=== PATIENT | female | born 1940 | race Caucasian/White ===

== ENCOUNTER 2018-06-02 13:21 | Inpatient (IN) ==
[2018-06-02] MEDS ORDERED: Acetaminophen 325 MG TABLET PO PRN (19:03)
[2018-06-02] MEDS: *HR* Heparin 5,000 UNIT/ML VIAL SQ SCH (19:10)
[2018-06-02] MEDS ORDERED: Mag Hydrox/Al Hydrox/Simeth 30 ML UDC PO PRN (19:44)
[2018-06-02] MEDS: Gabapentin 300 MG CAPSULE PO SCH (22:45)
[2018-06-02] MEDS: Acetaminophen 325 MG TABLET PO PRN (22:45)
[2018-06-02] MEDS: Carbidopa/Levodopa ER 50/200 TABLET PO SCH (22:46)
[2018-06-03] MEDS: Ondansetron ODT 4 MG TAB.RAPDIS SL PRN ×3 (06:15→19:51)
[2018-06-03] MEDS: *HR* Heparin 5,000 UNIT/ML VIAL SQ SCH ×2 (06:16→18:46)
[2018-06-03 06:21] LABS: Basophils % 0.3 %; Eosinophils # 0.1 K/mcL (0.0-0.6); Eosinophils % 1.5 %; Hematocrit 29.9 % (35.3-44.9); Immature Granulocytes % 0.4 % (0-4); Lymphocytes # 2.1 K/mcL (0.6-4.6); Lymphocytes % 31.3 %; Mean Corpuscular HGB Conc 33.4 g/dL (31.6-35.5); Mean Corpuscular Hemoglobin 29.6 pg (28.0-33.3); Mean Corpuscular Volume 88.5 fL (83.0-100.0); Mean Platelet Volume 11.4 fL (9.4-12.4); Monocytes # 0.5 K/mcL (0.0-1.3); Monocytes % 7.7 %; Platelet Count 127 K/mcL (140-400); Red Blood Count 3.38 M/mcL (3.82-4.97); Red Cell Distribution Width 15.4 % (11.5-14.5); Segmented Neutrophils % 58.8 %
[2018-06-03] MEDS: Acetaminophen 325 MG TABLET PO PRN ×2 (10:06→14:04)
[2018-06-03] MEDS: Carbidopa/Levodopa ER 50/200 TABLET PO SCH ×2 (10:08→20:47)
[2018-06-03] MEDS: Gabapentin 300 MG CAPSULE PO SCH ×2 (10:09→20:46)
[2018-06-03] MEDS: Aspirin 81 MG TAB.CHEW PO SCH (10:09)
[2018-06-03] MEDS: amLODIPine 5 MG TABLET PO SCH (10:09)
--- NOTE | 2018-06-03 15:58 | Internal Med History&Physical ---
Date of Encounter: 06/03/18 Time of Encounter: 15:52 Assessment and Plan (1) Intractable nausea and vomiting Current visit: No Status: Acute We will increase her Zofran dose and follow. I encouraged patient to prioritize fluids and try soft foods as tolerated. Qualifiers: Vomiting type: unspecified Qualified Code(s): R11.2 - Nausea with vomiting, unspecified (2) Left leg weakness Current visit: No Status: Acute Etiology is uncertain but we will follow clinically and assess with therapy, otherwise as needed. (3) Dysarthria Current visit: No Status: Acute Long-standing, per history, will follow and try to accommodate patient. (4) S/P laparoscopic cholecystectomy Current visit: No Status: Acute She has minimal abdominal tenderness and seems to be quite stable and improving well clinically with exception of her nausea and vomiting. (5) Hypokalemia Current visit: No Status: Acute Chemistry was obtained. This is been requested. (6) DVT prophylaxis Current visit: No Status: Acute She is being treated with prophylactic heparin. (7) UTI (urinary tract infection) Current visit: No Status: Resolved No current signs or symptoms. Qualifiers: Urinary tract infection type: site unspecified Hematuria presence: with hematuria Qualified Code(s): N39.0 - Urinary tract infection, site not s pecified; R31.9 - Hematuria, unspecified (8) Elevated bilirubin Current visit: No Status: Acute I suspect this is related to her cholestatic jaundice but will reassess with a comprehensive metabolic panel. This is especially true given her intractable nausea and vomiting. (9) Constipation Current visit: Yes Status: Acute As above, I instructed patient to use MiraLAX if no bowel movement in the next 12-24 hours. Qualifiers: Constipation type: slow transit constipation Qualified Code(s): K59.01 - S low transit constipation (10) Parkinsons disease Current visit: Yes Status: Acute Severity is difficult to assess but she has some changes including dizziness which could be related. She also has diminished facial expression which could be related to her strokes or to this diagnosis. We will continue her carbidopa/levodopa. (11) Depression Current visit: Yes Status: Acute We will follow and continue current regimen. Qualifiers: Depression Type: major depressive disorder Major depression recurrence: unspecified whether recurrent Major depression episode severity: unspecified Qualified Code(s): F32.9 - Major depressive disorder, single episode, unspecified Internal Medicine - H&P: HPI Admitted From: Hospital to Hospital Transfer Plans for Post Hospital Care: Home History of present illness: Ms. Kline is a 78 year old female with a history of stroke 3 which causes dysarthria, hyperlipidemia, hypertension, depression who had long-standing n ausea with emesis. This was especially bad for about a month before her admission for intractable nausea and vomiting. She was found to have cholecystitis and cholelithiasis. She underwent thoracoscopic cholecystectomy and has improved. However, she still has nausea with some inability to keep m edications and other foods down. She denies hematemesis or hematochezia. She was noted to have diminished strength in her left leg and for this reason has had 2 MRIs with no change from previous, reported by patient and family. The patient notes blurred vision which has been present prior to her hospitalization and surgery. On confrontation, she states that she has diplopia with extraocular muscles. She states is been present for about 2-3 weeks, or more. She is not sure when she had her eyes checked or glasses change most recently. She complains of sores on the roof of her mouth which have not allowed her to wear her dentures for at least more than 2 weeks prior to surgery. She has left knee pain which has been present since the time of her surgery. She knows of no injury or fall, related. For unknown reasons, she has had neck pain and inability to move her neck for quite some time. This is limiting her ability to hyperextend her neck. She has not had a bowel movement since surgery. Past Med Surg Social Fam HX - Past Medical History Source: patient, obtained from family Medical history: coronary artery disease, CVA, hyperlipidemia, hypertension Additional medical history: Parkinson's Disease Psychiatric history: depression - Past Surgical History Surgical History: no surgical history, cholecystectomy Additional surgical history: Laparoscopic - Social History Smoking Status: Never smoker Smokeless Tobacco Status: No Alcohol use: none Drug use: none Occupational status: unemployed - Family History Mother Hx Family Cardiac Disorders: Yes Father Hx Family Cardiac Disorders: Yes Internal Medicine - H&P: Meds Amlodipine Besylate 10 mg PO DAILY 05/18/17 [History] Aspirin 05/18/17 [History] Atorvastatin [Lipitor] 40 mg PO DAILY 01/24/18 [History] Buspirone HCl [Buspar] 5 mg PO BID 05/18/17 [History] Carbidopa/Levodopa ER 50/200 [Sinemet ER 50-200 Tab] 1 tab PO BID 05/18/17 [History] Prevacid 05/18/17 [History] Sertraline [Zoloft] 150 mg PO DAILY 05/18/17 [History] Bethanechol [Urecholine] 25 mg PO BID 05/30/18 [History] Gabapentin [Neurontin] 300 mg PO BID 05/30/18 [History] Bisacodyl [Dulcolax] 5 mg PO DAILY PRN tablet 06/02/18 [Rx] Docusate [Colace] 100 mg PO BID capsule 06/02/18 [Rx] Heparin 5,000 unit SQ Q12HCO vial 06/02/18 [Rx] Sucralfate [Carafate] 1 gm PO QIDAC udc 06/02/18 [Rx] Allergy/AdvReac Type Severity Reaction Status Date / Time Sulfa (Sulfonamide Allergy Hives Verified 05/28/18 13:39 Antibiotics) All Systems PM: Patient is edentulous and wears full dentures. Eye changes as above. Patient has no complaint of chest discomfort, dyspnea, orthopnea, breathing problems, palpitations, nausea or vomiting, constipation or diarrhea, other changes in bowel habits, heartburn, difficulty with urination, kidney problems or kidney stones, fevers chills or sweats, rash or itching, seizures, headache or lightheadedness, heat or cold intolerance, blood problems or anemia, or other new complaints, except as mentioned above. Review of systems is otherwise negative. - Constitutional Vitals: Temp Pulse Resp BP Pulse Ox 98.2 F 82 16 111/77 97 06/03/18 14:49 06/03/18 14:49 06/03/18 14:49 06/03/18 14:49 06/03/18 14:49 Exam: Examination: (Except as mentioned above): General: In no apparent distress, alert and oriented 3. However, exam and history are limited because of the patient's dysarthria. Fortunately, the patient's granddaughter in law is present and is able to elucidate about 95% of what the patient is saying. Later, her son and grandson also are present. Head: Atraumatic and normocephalic. Eyes: Extraocular muscles are intact, pupils equal round and reactive to light and accommodation. Sclerae anicteric. Ears: External ears are normal to inspection and hearing is grossly normal. Nose: Patent without lesion noted. Mouth: No intraoral lesions seen. She is edentulous. No lesions are seen at her anterior palate on the right side where she says she has sores in her mouth. Exam is somewhat limited by the angle she is able to perform because of her neck disability. Neck: Supple with trachea midline. There is no thyromegaly or adenopathy and carotids are 2+ without bruit heard. Respiratory: No use of accessory muscles. Lungs are clear throughout. Normal airflow. Cardiovascular: Regular rate and rhythm without murmur appreciated. Abdomen: Bowel sounds are normal. No hepatosplenomegaly or mass but has diffuse mild abdominal tenderness, without guarding or rebound. Obese and therefore difficult to palpate deeply. Patient is examined upright in chair and this also limits exam. Extremities: No cyanosis clubbing or edema. No crepitus with range of motion at knees or signs of effusion, etc. Neurological: A and O 3. Cranial nerves II through XII are intact. No focal deficits and no abnormal movements or postures. Skin: Warm and non-diaphoretic with no lesions noted. Breasts, pelvic and rectal: Not examined. Internal Med - H&P Results - Labs CBC & Chem 7: 06/03/18 05:50 Labs: Short CBC 06/03/18 Range/Units 05:50 WBC 6.8 (4.3-11.1) K/mcL Hgb 10.0 L (11.5-15.4) g/dL Hct 29.9 L (35.3-44.9) % Plt Count 127 L (140-400) K/mcL Neutrophils # 4.0 (1.6-8.9) K/mcL
[2018-06-04 04:55] LABS: Basophils % 0.5 %; Eosinophils # 0.1 K/mcL (0.0-0.6); Eosinophils % 2.3 %; Hematocrit 30.9 % (35.3-44.9); Hemoglobin 10.1 g/dL (11.5-15.4); Immature Granulocytes % 0.8 % (0-4); Lymphocytes # 2.2 K/mcL (0.6-4.6); Lymphocytes % 35.5 %; Mean Corpuscular HGB Conc 32.7 g/dL (31.6-35.5); Mean Corpuscular Hemoglobin 28.7 pg (28.0-33.3); Mean Corpuscular Volume 87.8 fL (83.0-100.0); Mean Platelet Volume 11.5 fL (9.4-12.4); Monocytes # 0.6 K/mcL (0.0-1.3); Monocytes % 8.9 %; Neutrophils # 3.2 K/mcL (1.6-8.9); Platelet Count 160 K/mcL (140-400); Red Blood Count 3.52 M/mcL (3.82-4.97); Red Cell Distribution Width 15.2 % (11.5-14.5)
[2018-06-04 05:09] LABS: Alanine Aminotransferase 4 Units/L (7-52); Albumin 2.9 g/dL (3.5-5.7); Albumin/Globulin Ratio 1.3 (1.1-2.2); Alkaline Phosphatase 129 Units/L (34-104); Aspartate Amino Transferase 25 Units/L (13-39); BUN/Creatinine Ratio 30 (6-26); Bilirubin,Total 0.8 mg/dL (0.3-1.0); Blood Urea Nitrogen 18 mg/dL (8-23); Calcium 9.2 mg/dL (8.6-10.3); Carbon Dioxide 35 mEq/L (23-29); Chloride 98 mEq/L (98-107); Globulin 2.2 g/dL (2.4-3.5); Glucose 87 mg/dL (70-105); Magnesium 1.5 mg/dL (1.6-2.6); Osmolality,Calculated 287 (280-300); Potassium 3.5 mEq/L (3.5-5.1); Sodium 138 mEq/L (136-145); Total Protein 5.1 g/dL (6.4-8.9); eGFR For Non-African Americans > 60 (> 60)
[2018-06-04] MEDS: *HR* Heparin 5,000 UNIT/ML VIAL SQ SCH ×2 (05:29→17:08)
[2018-06-04] MEDS: Ondansetron ODT 4 MG TAB.RAPDIS SL PRN ×2 (07:58→19:26)
[2018-06-04] MEDS: Gabapentin 300 MG CAPSULE PO SCH ×2 (09:07→20:37)
[2018-06-04] MEDS: amLODIPine 5 MG TABLET PO SCH (09:08)
[2018-06-04] MEDS: Carbidopa/Levodopa ER 50/200 TABLET PO SCH ×2 (09:08→20:37)
[2018-06-04] MEDS: Aspirin 81 MG TAB.CHEW PO SCH (09:08)
--- NOTE | 2018-06-04 15:27 | Internal Med Progress Note ---
Date of Encounter: 06/05/18 Time of Encounter: 15:24 - Assessment and plan (1) Intractable nausea and vomiting Current Visit: Yes Status: Acute Assessment and plan: This is improving although she still has some nausea. Will follow. Qualifiers: Vomiting type: unspecified Qualified Code(s): R11.2 - Nausea with vomiting, unspecified (2) Left leg weakness Current Visit: No Status: Acute Assessment and plan: The etiology is uncertain and might be left over from her stroke or new deficit. Will follow. (3) Dysarthria Current Visit: Yes Status: Acute Assessment and plan: This is apparently at baseline, per family. (4) S/P laparoscopic cholecystectomy Current Visit: Yes Status: Acute Assessment and plan: Improving but nausea is a remaining concern. Will follow. (5) Hypokalemia Current Visit: No Status: Acute Assessment and plan: Will follow serial labs. (6) DVT prophylaxis Current Visit: No Status: Acute Assessment and plan: Stable on current regimen of heparin subcutaneous. (7) UTI (urinary tract infection) Current Visit: No Status: Resolved Assessment and plan: No current signs or symptoms. Qualifiers: Urinary tract infection type: site unspecified Hematuria presence: with hematuria Qualified Code(s): N39.0 - Urinary tract infection, site not specified; R31.9 - Hematuria, unspecified (8) Elevated bilirubin Current Visit: No Status: Acute Assessment and plan: Repeat lab is scheduled for tomorrow. (9) Constipation Current Visit: Yes Status: Acute Assessment and plan: We will continue with MiraLAX, as planned. Qualifiers: Constipation type: slow transit constipation Qualified Code(s): K59.01 - Slow transit constipation (10) Parkinsons disease Current Visit: Yes Status: Acute Assessment and plan: Clinically stable. (11) Depression Current Visit: Yes Status: Acute Assessment and plan: Clinically stable. Qualifiers: Depression Type: major depressive disorder Major depression recurrence: un specified whether recurrent Major depression episode severity: unspecified Qualified Code(s): F32.9 - Major depressive disorder, single episode, u nspecified (12) Atelectasis Current Visit: Yes Status: Acute Assessment and plan: This is much improved versus exam yesterday. - Subjective Interval history: Her speech still limits communication but generally, she is understandable. Family is not present so communication is somewhat limited. Patient has less nausea than yesterday and has had no emesis. However, she still is choking on pills and has difficulty with nausea, almost all time. Her mild abdominal pain persists. Patient has no complaint of chest discomfort, dyspnea, orthopnea, palpitations, nausea or vomiting, constipation or diarrhea, other changes in bowel habits, difficulty with urination, rash or itching, or other new complaints, except as mentioned above. Review of systems is otherwise negative. I discussed management of her care with nursing staff. - Constitutional Vitals: Temp Pulse Resp BP Pulse Ox 98.2 F 72 16 104/68 98 06/04/18 07:44 06/04/18 07:44 06/04/18 07:44 06/04/18 07:44 06/04/18 07:44 Exam: Examination: (Except as mentioned above): General: In no apparent distress. Alert and oriented 3. Nondiaphoretic. Communication limited as above. Head: Atraumatic and normocephalic. Respiratory: No use of accessory muscles. Lungs are clear throughout except for left basilar rales which partially clear with coughing. Normal airflow. Cardiovascular: Regular rate and rhythm without murmur appreciated. Abdomen: Bowel sounds are normal. No hepatosplenomegaly mass or change in tenderness appreciated. She has mild lower abdominal wall tenderness without guarding or rebound. Obese and therefore difficult to palpate deeply. Extremities: No cyanosis clubbing or edema. Skin: Warm and non-diaphoretic with no new lesions noted. Internal Medicine: Result - Labs CBC & Chem 7: 06/05/18 05:10 06/05/18 05:10 Labs: Short CBC 06/04/18 Range/Units 04:32 WBC 6.2 (4.3-11.1) K/mcL Hgb 10.1 L (11.5-15.4) g/dL Hct 30.9 L (35.3-44.9) % Plt Count 160 (140-400) K/mcL Neutrophils # 3.2 (1.6-8.9) K/mcL BMP 06/04/18 04:32 Sodium 138 Potassium 3.5 Chloride 98 Carbon Dioxide 35 H BUN 18 Creatinine 0.60 Glucose 87 Calcium 9.2 Liver Function 06/04/18 Range/Units 04:32 Total Bilirubin 0.8 (0.3-1.0) mg/dL AST 25 (13-39) Units/L ALT 4 L (7-52) Units/L Alkaline Phosphatase 129 H (34-104) Units/L Albumin 2.9 L (3.5-5.7) g/dL Consult Discharge Plan - Plan Referrals: Jose Francisco Trotter DO [Primary Care Provider] -
[2018-06-04 20:44] LABS: Bilirubin,Urine Small (Negative); Blood,Urine Small (Negative); Clarity,Urine Slightly Cloudy (Clear); Glucose,Urine (UA) 100 mg/dL (Normal); Ketones,Urine Negative (Negative); Leukocyte Esterase,Urine Small (Negative); Nitrite,Urine Negative (Negative); Protein,Urine Trace mg/dL (Neg-Trace); Urobilinogen,Urine Normal (Normal)
[2018-06-04 20:51] LABS: Color,Urine Dark Yellow (Yellow)
[2018-06-04 20:53] LABS: Bacteria,Urine Few per hpf (None-Few); Hyaline Casts,Urine Few per lpf (None-Few)
[2018-06-05] MEDS: *HR* Heparin 5,000 UNIT/ML VIAL SQ SCH ×2 (04:42→17:23)
[2018-06-05 05:51] LABS: Basophils % 0.6 %; Eosinophils # 0.1 K/mcL (0.0-0.6); Eosinophils % 1.5 %; Hematocrit 29.5 % (35.3-44.9); Hemoglobin 9.7 g/dL (11.5-15.4); Lymphocytes # 2.8 K/mcL (0.6-4.6); Lymphocytes % 37.8 %; Mean Corpuscular HGB Conc 32.9 g/dL (31.6-35.5); Mean Corpuscular Volume 88.3 fL (83.0-100.0); Mean Platelet Volume 11.7 fL (9.4-12.4); Monocytes # 0.7 K/mcL (0.0-1.3); Neutrophils # 3.6 K/mcL (1.6-8.9); Platelet Count 156 K/mcL (140-400); Red Blood Count 3.34 M/mcL (3.82-4.97); Red Cell Distribution Width 14.9 % (11.5-14.5); Segmented Neutrophils % 49.1 %
[2018-06-05 06:06] LABS: Alanine Aminotransferase 6 Units/L (7-52); Albumin 2.9 g/dL (3.5-5.7); Albumin/Globulin Ratio 1.3 (1.1-2.2); Alkaline Phosphatase 124 Units/L (34-104); Aspartate Amino Transferase 23 Units/L (13-39); BUN/Creatinine Ratio 25 (6-26); Bilirubin,Total 0.8 mg/dL (0.3-1.0); Blood Urea Nitrogen 18 mg/dL (8-23); Calcium 9.4 mg/dL (8.6-10.3); Carbon Dioxide 36 mEq/L (23-29); Chloride 99 mEq/L (98-107); Globulin 2.2 g/dL (2.4-3.5); Glucose 86 mg/dL (70-105); Osmolality,Calculated 287 (280-300); Potassium 3.5 mEq/L (3.5-5.1); Sodium 138 mEq/L (136-145); Total Protein 5.1 g/dL (6.4-8.9); eGFR For Non-African Americans > 60 (> 60)
[2018-06-05] MEDS: Ondansetron ODT 4 MG TAB.RAPDIS SL PRN ×2 (08:27→17:30)
[2018-06-05] MEDS: Fluconazole 100 MG TABLET PO SCH (10:25)
[2018-06-05] MEDS: Aspirin 81 MG TAB.CHEW PO SCH (10:25)
[2018-06-05] MEDS: Acetaminophen 325 MG TABLET PO PRN (10:25)
[2018-06-05] MEDS: Carbidopa/Levodopa ER 50/200 TABLET PO SCH ×3 (10:26→22:19)
[2018-06-05] MEDS: Gabapentin 300 MG CAPSULE PO SCH ×3 (10:27→22:18)
[2018-06-05] MEDS: amLODIPine 5 MG TABLET PO SCH (10:27)
--- NOTE | 2018-06-05 11:33 | Internal Med Progress Note ---
Addendum entered and electronically signed by George David MD 06/05/18 12:50: I have personally performed a face to face evaluation on this patient. I have r eviewed and agree with the care plan. History and Exam by me shows: Patient continues to improve. She has mild nausea but much better than yesterday. She was able take her medicines without problems, this morning. She has no new complaints. She still has not had a bowel movement and I encouraged use of MiraLAX and if no bowel movement by this evening, a dose of magnesium citrate. We need to correct the constipation to see if that will help her bladder dysfunction. Nursing had noticed before urination last night and she was found to have a significantly enlarged bladder retention by bladder scan, last night. We started her on a regimen of catheterization but will go ahead and set she has no sensation of needing to urinate, will place a catheter with bladder training. Discussed care with other providers and/or nursing. Patient has no complaint of chest discomfort, dyspnea, orthopnea, palpitations, nausea or vomiting, constipation or diarrhea, other changes in bowel habits, difficulty with urination, rash or itching, or other new complaints, except as mentioned above. Review of systems is otherwise negative. Examination: (Except as mentioned above): General: In no apparent distress. Alert and oriented 3. Nondiaphoretic. Head: Atraumatic and normocephalic. Respiratory: No use of accessory muscles. Lungs are clear throughout. No rales are heard. Normal airflow. Cardiovascular: Regular rate and rhythm without murmur appreciated. Abdomen: Bowel sounds are normal. No hepatosplenomegaly mass or tenderness appreciated. Obese and therefore difficult to palpate deeply. Patient is examined upright in chair and this also limits exam. Extremities: No cyanosis clubbing or edema. Skin: Warm and non-diaphoretic with no new lesions noted. Original Note: Date of Encounter: 06/05/18 Time of Encounter: 11:31 - Assessment and plan (1) Intractable nausea and vomiting Current Visit: Yes Status: Acute Assessment and plan: Improving. No vomiting recently. Continue Zofran as needed for nausea. Qualifiers: Vomiting type: unspecified Qualified Code(s): R11.2 - Nausea with vomiting, unspecified (2) Dysarthria Current Visit: Yes Status: Acute Assessment and plan: This is been present since history of CVA. (3) S/P laparoscopic cholecystectomy Current Visit: Yes Status: Acute Assessment and plan: Incision improving. Abdominal pain improving. Follow up with surgeon as scheduled. (4) Parkinsons disease Current Visit: Yes Status: Acute Assessment and plan: Continue medication. Monitor neurological status. Assist with ADLs as necessary. Continue supportive care. - Time Spent With Patient less than 15 minutes - Subjective Interval history: Patient currently sitting up in wheelchair, denies pain. Starting to wean oxygen. Down to 1 L per nasal cannula maintaining sets greater than 96%. States she has not had a last bowel movement since prior to surgery. Taking Colace and Dulcolax. Will add Miralax today. States nausea and abdominal pain has improved. Patient is difficult to communicate with due to dysarthria from history of CVA times 3. Denies any further complaints at this time. - Constitutional Vitals: Temp Pulse Resp BP Pulse Ox 98.8 F 69 16 117/73 97 06/05/18 07:14 06/05/18 07:14 06/05/18 07:14 06/05/18 07:14 06/05/18 07:14 General appearance: Present: cooperative, A&O X 3, pleasant, no acute distress, answers questions appropriately Exam: Dysarthria - Head Head exam: Present: atraumatic, normocephalic - Eye Eye exam: Present: PERRL, conjuntiva pink, sclera anicteric Pupils: Present: PERRL - Neck Neck exam general surgery: Present: supple, trachea midline. Absent: lymphadenopathy - Respiratory Respiratory exam: Present: CTAB. Absent: accessory muscle use, rales, rhonchi, wheezes - Cardiovascular Cardiovascular exam: Present: RRR, +S1, +S2. Absent: diastolic murmur, gallop, rubs, systolic murmur - GI/Abdominal GI/Abdominal exam: Present: normal bowel sounds, soft, no peritoneal signs. Absent: distended, tenderness - Extremities Exam Extremities exam: Present: warm, radial pulses palpable and symmetrical. Absent: calf tenderness, cyanotic, pedal edema - Incison Comments: Laparoscopy incisions to abdomen Steri-Strips in place. No drainage. Bruising to lower abdomen present - Neurological Exam Neurological exam: Present: CN II-XII intact, oriented X3, no focal deficits. Absent: pronater drift, facial droop, speech deficit - Skin Skin exam: Present: dry, intact Internal Medicine: Result - Labs CBC & Chem 7: 06/05/18 05:10 06/05/18 05:10 Labs: Short CBC 06/05/18 Range/Units 05:10 WBC 7.3 (4.3-11.1) K/mcL Hgb 9.7 L (11.5-15.4) g/dL Hct 29.5 L (35.3-44.9) % Plt Count 156 (140-400) K/mcL Neutrophils # 3.6 (1.6-8.9) K/mcL BMP 06/05/18 05:10 Sodium 138 Potassium 3.5 Chloride 99 Carbon Dioxide 36 H BUN 18 Creatinine 0.72 Glucose 86 Calcium 9.4 Liver Function 06/05/18 Range/Units 05:10 Total Bilirubin 0.8 (0.3-1.0) mg/dL AST 23 (13-39) Units/L ALT 6 L (7-52) Units/L Alkaline Phosphatase 124 H (34-104) Units/L Albumin 2.9 L (3.5-5.7) g/dL Urine 06/04/18 Range/Units 20:30 Urine Color Dark Yellow (Yellow) Urine Clarity Slightly Cloudy A (Clear) Urine pH 7.0 (5.0-8.0) pH Units Ur Specific [place] 1.020 (1.010-1.025) Urine Protein Trace (Neg-Trace) mg/dL Urine Glucose (UA) 100 H (Normal) mg/dL Consult Discharge Plan - Plan Referrals: Jose Francisco Trotter DO [Primary Care Provider] -
[2018-06-06] MEDS: *HR* Heparin 5,000 UNIT/ML VIAL SQ SCH ×2 (06:17→15:46)
[2018-06-06] MEDS: Ondansetron ODT 4 MG TAB.RAPDIS SL PRN ×2 (07:32→19:47)
--- NOTE | 2018-06-06 11:22 | Internal Med Progress Note ---
Addendum entered and electronically signed by George David MD 06/06/18 13:29: I have personally performed a face to face evaluation on this patient. I have r eviewed and agree with the care plan. History and Exam by me shows: The patient is totally unable to swallow her medications, today. Applesauce did not work and so they tried ice cream that had been previously successful. This was not possible. She has minimal abdominal wall complaints but no nausea except when trying to swallow. Her oral intake is minimal including liquids. Nursing notes per family that this is her baseline. She had problems with this before. She remotely had a PEG tube. The patient notes that she is having difficulty swallowing her pills but in general, feels otherwise stable. Her left leg weakness has seemed to resolve. She still has had no bowel movement and because of urinary retention, we inserted a Bertrand catheter and will begin bladder training. Discussed care with other providers and/or nursing. Patient has no complaint of chest discomfort, dyspnea, orthopnea, palpitations, nausea or vomiting, constipation or diarrhea, other changes in bowel habits, difficulty with urination, rash or itching, or other new complaints, except as mentioned above. Review of systems is otherwise negative. Examination: (Except as mentioned above): General: In no apparent distress. Alert and oriented 3. Nondiaphoretic. Speech again limits evaluation. Head: Atraumatic and normocephalic. Respiratory: No use of accessory muscles. Lungs are clear throughout. Normal airflow. Cardiovascular: Regular rate and rhythm without murmur appreciated. Abdomen: Bowel sounds are normal. No hepatosplenomegaly mass or tenderness appreciated. Obese and therefore difficult to palpate deeply. Extremities: No cyanosis clubbing or change in edema. She still has 1+ edema bilaterally. Skin: Warm and non-diaphoretic with no new lesions noted. Nursing notes that her urine is tea colored and very dark. We will send a urinalysis for same. I encourage nursing to try her cardiac meds first. If she is not successful in getting these down in a day or so, we will need to talk with family about PEG tube placement. Because her oral intake is so limited, we will need to follow today and if she does not begin to eat or drink more soon, we will need to consider IV. Original Note: Date of Encounter: 06/06/18 Time of Encounter: 11:19 - Assessment and plan (1) Intractable nausea and vomiting Current Visit: Yes Status: Acute Assessment and plan: Having a gag reflex when taking pills, No vomiting recently. Continue Zofran as needed for nausea. Qualifiers: Vomiting type: unspecified Qualified Code(s): R11.2 - Nausea with vomiting, unspecified (2) Dysarthria Current Visit: Yes Status: Acute Assessment and plan: This is been present since history of CVA. (3) S/P laparoscopic cholecystectomy Current Visit: Yes Status: Acute Assessment and plan: Incision improving. Abdominal pain improving. Follow up with surgeon as scheduled. (4) Parkinsons disease Current Visit: Yes Status: Acute Assessment and plan: Continue medication. Monitor neurological status. Assist with ADLs as necessary. Continue supportive care. (5) Urinary retention Current Visit: Yes Status: Chronic Assessment and plan: Bertrand placed. Urine culture pending. This has been a chronic issue. - Time Spent With Patient less than 15 minutes - Subjective Interval history: Patient currently sitting up in wheelchair, denies pain. States she has not had a last bowel movement since prior to surgery. Taking Colace and Dulcolax, and Miralax. States nausea and abdominal pain has improved, but having gag reflux when taking pills. Unable to get medications down this morning. Patient is difficult to communicate with due to dysarthria from history of CVA times 3. Denies any further complaints at this time. - Constitutional Vitals: Temp Pulse Resp BP Pulse Ox 98.0 F 73 14 110/69 92 06/06/18 09:14 06/06/18 09:14 06/06/18 09:14 06/06/18 09:14 06/06/18 09:14 General appearance: Present: cooperative, A&O X 3, pleasant, no acute distress, answers questions appropriately - Head Head exam: Present: atraumatic, normocephalic - Eye Eye exam: Present: PERRL, conjuntiva pink, sclera anicteric Pupils: Present: PERRL - Neck Neck exam general surgery: Present: supple, trachea midline. Absent: lymphadenopathy - Respiratory Respiratory exam: Present: CTAB. Absent: accessory muscle use, rales, rhonchi, wheezes - Cardiovascular Cardiovascular exam: Present: RRR, +S1, +S2. Absent: diastolic murmur, gallop, rubs, systolic murmur - GI/Abdominal GI/Abdominal exam: Present: normal bowel sounds, soft, no peritoneal signs. Absent: distended, tenderness - Extremities Exam Extremities exam: Present: warm, radial pulses palpable and symmetrical. Absent: calf tenderness, cyanotic, pedal edema - Neurological Exam Neurological exam: Present: CN II-XII intact, oriented X3, no focal deficits. Absent: pronater drift, facial droop, speech deficit - Skin Skin exam: Present: dry, intact Internal Medicine: Result - Labs CBC & Chem 7: 06/05/18 05:10 06/05/18 05:10 Consult Discharge Plan - Plan Referrals: Jose Francisco Trotter DO [Primary Care Provider] -
[2018-06-06] MEDS: Aspirin 81 MG TAB.CHEW PO SCH (12:36)
[2018-06-06] MEDS: Fluconazole 100 MG TABLET PO SCH (12:37)
[2018-06-06] MEDS: Gabapentin 300 MG CAPSULE PO SCH ×3 (12:37→21:10)
[2018-06-06] MEDS: Carbidopa/Levodopa ER 50/200 TABLET PO SCH ×2 (12:37→21:08)
[2018-06-06] MEDS: amLODIPine 5 MG TABLET PO SCH ×2 (12:37→15:46)
[2018-06-06] MEDS ORDERED: Bisacodyl 10 MG RECTAL SUPPOSITORY RC PRN (13:54)
[2018-06-06] MEDS: Acetaminophen 325 MG TABLET PO PRN (15:46)
[2018-06-06] MEDS: 0.9 % Sodium Chloride 1,000 ML IVC SCH (19:35)
[2018-06-07] MEDS: 0.9 % Sodium Chloride 1,000 ML IVC SCH ×3 (03:28→20:20)
[2018-06-07] MEDS: *HR* Heparin 5,000 UNIT/ML VIAL SQ SCH ×2 (06:24→17:01)
[2018-06-07] MEDS: Ondansetron ODT 4 MG TAB.RAPDIS SL PRN ×2 (09:19→20:20)
[2018-06-07] MEDS: amLODIPine 5 MG TABLET PO SCH (10:04)
[2018-06-07] MEDS: Carbidopa/Levodopa ER 50/200 TABLET PO SCH ×2 (10:04→21:35)
[2018-06-07] MEDS: Gabapentin 300 MG CAPSULE PO SCH ×2 (10:04→21:35)
[2018-06-07] MEDS: Aspirin 81 MG TAB.CHEW PO SCH (10:05)
[2018-06-07] MEDS: Fluconazole 100 MG TABLET PO SCH (10:05)
[2018-06-07] MEDS: Acetaminophen 325 MG TABLET PO PRN (10:08)
--- NOTE | 2018-06-07 11:16 | Internal Med Progress Note ---
Addendum entered and electronically signed by George David MD 06/07/18 11:48: I have personally performed a face to face evaluation on this patient. I have r eviewed and agree with the care plan. History and Exam by me shows: Patient complains of pain at her coccyx. However, she states that she is feeling much better than yesterday. She is taking her medications. This is significantly better than yesterday. However, her oral intake is still only abo ut 60 mL's, this morning. We started him on IV because of her very poor oral intake, yesterday. She is hypoalbuminemic and not able to take medications intermittently and certainly is having problems with constipation. She still has had minimal bowel movement with Dulcolax suppository. If she does not go today, she will need to have a minimum. Nursing is aware that we need to speak with family about possible PEG tube placement because of poor poor intake. Nursing has dressed and reports a stage II decubitus ulcer at the coccygeal area. Discussed care with other providers and/or nursing. Patient has no complaint of chest discomfort, dyspnea, orthopnea, palpitations, nausea or vomiting, constipation or diarrhea, other changes in bowel habits, difficulty with urination, rash or itching, or other new complaints, except as mentioned above. Review of systems is otherwise negative. Examination: (Except as mentioned above): General: In no apparent distress. Alert and oriented 3. Nondiaphoretic. She is more understandable than yesterday. Her slurred speech makes in review difficult but she seems to be understanding everything. Head: Atraumatic and normocephalic. Respiratory: No use of accessory muscles. Lungs are clear throughout. Normal airflow. Cardiovascular: Regular rate and rhythm without murmur appreciated. Abdomen: Bowel sounds are normal. No hepatosplenomegaly mass or much tenderness appreciated. Obese and therefore difficult to palpate deeply. Extremities: No cyanosis clubbing or edema. Skin: Warm and non-diaphoretic with no new lesions noted. She has a large ecchymosis at the left hip but no fluctuance, etc. Original Note: Date of Encounter: 06/07/18 Time of Encounter: 11:11 - Assessment and plan (1) S/P laparoscopic cholecystectomy Current Visit: Yes Status: Acute Assessment and plan: No acute issues. Surgical incision appears healthy. Patient denies any discomforts. Patient participating in physical therapy. (2) Parkinsons disease Current Visit: Yes Status: Acute Assessment and plan: Patient continues with moderate generalized weakness. Physical therapy and progressing well. (3) Malnutrition Current Visit: Yes Status: Acute Assessment and plan: Patient continues with poor oral intake. Patient with history of mild malnutrition. Patient is being evaluated for possible pain placement. Recent albumin 2.9. Qualifiers: Protein-calorie malnutrition severity: mild Qualified Code(s): E44.1 - Mild protein-calorie malnutrition - Time Spent With Patient less than 15 minutes - Subjective Interval history: Patient appears relaxed but currently complaints of moderate pain to her sacral decubitus site. Patient denies any shortness of breath. - Constitutional Vitals: Temp Pulse Resp BP Pulse Ox 98.3 F 69 15 100/62 92 06/07/18 07:35 06/07/18 07:35 06/07/18 07:35 06/07/18 07:35 06/07/18 07:35 General appearance: Present: cooperative, A&O X 3, pleasant, no acute distress, answers questions appropriately - Head Head exam: Present: atraumatic, normocephalic - Eye Eye exam: Present: PERRL, conjuntiva pink, sclera anicteric Pupils: Present: PERRL - Neck Neck exam general surgery: Present: supple, trachea midline. Absent: lymphadenopathy - Respiratory Respiratory exam: Present: CTAB, rales. Absent: accessory muscle use, rhonchi, wheezes Additional comments: Lungs are clear throughout upper schwarz with scattered fine rales heard throughout lower half. Respiratory effort appears relaxed. No productive cough noted. - Cardiovascular Cardiovascular exam: Present: RRR, +S1, +S2. Absent: diastolic murmur, gallop, rubs, systolic murmur - GI/Abdominal GI/Abdominal exam: Present: normal bowel sounds, soft, no peritoneal signs. Absent: distended, tenderness - Extremities Exam Extremities exam: Present: warm, radial pulses palpable and symmetrical. Absent: calf tenderness, cyanotic, pedal edema - Neurological Exam Neurological exam: Present: CN II-XII intact, oriented X3, no focal deficits. Absent: pronater drift, facial droop, speech deficit - Skin Skin exam: Present: dry, intact Additional comments: Patient with small decubitus to her sacral area with dressing in place that is dry and intact. Internal Medicine: Result - Labs CBC & Chem 7: 06/05/18 05:10 06/05/18 05:10 Consult Discharge Plan - Plan Referrals: Jose Francisco Trotter DO [Primary Care Provider] -
[2018-06-08] MEDS: 0.9 % Sodium Chloride 1,000 ML IVC SCH ×3 (05:18→21:56)
[2018-06-08] MEDS: *HR* Heparin 5,000 UNIT/ML VIAL SQ SCH ×2 (05:19→17:39)
[2018-06-08] MEDS: Ondansetron ODT 4 MG TAB.RAPDIS SL PRN (07:55)
[2018-06-08] MEDS: Gabapentin 300 MG CAPSULE PO SCH ×2 (10:09→20:16)
[2018-06-08] MEDS: amLODIPine 5 MG TABLET PO SCH (10:09)
[2018-06-08] MEDS: Carbidopa/Levodopa ER 50/200 TABLET PO SCH ×2 (10:09→20:17)
[2018-06-08] MEDS: Aspirin 81 MG TAB.CHEW PO SCH (10:11)
--- NOTE | 2018-06-08 15:19 | Internal Med Progress Note ---
Date of Encounter: 06/08/18 Time of Encounter: 11:50 - Assessment and plan (1) Intractable nausea and vomiting Current Visit: Yes Status: Acute Assessment and plan: Her nausea is getting better, today. We discussed at length her history of PEG tube and she has not had this since her third stroke in 2013. Her granddaughter states that this is totally different, after her surgery and just before her gallbladder was removed. I discussed malnutrition and dehydration at length with them. In addition, they understand and accept. They are pleased with her progress over the last 24 hours. Qualifiers: Vomiting type: unspecified Qualified Code(s): R11.2 - Nausea with vomiting, unspecified (2) Left leg weakness Current Visit: No Status: Acute Assessment and plan: I believe this is resolved, per patient. She has no demonstrable weakness on this side versus the other. (3) Dysarthria Current Visit: Yes Status: Acute Assessment and plan: Apparently chronic and may have been worsened by fatigue. She is feeling better, she is easier to understand. (4) S/P laparoscopic cholecystectomy Current Visit: Yes Status: Acute Assessment and plan: She seems to be progressing well. (5) Hypokalemia Current Visit: No Status: Acute Assessment and plan: Apparently resolved for now but will need to watch. (6) DVT prophylaxis Current Visit: No Status: Acute (7) UTI (urinary tract infection) Current Visit: No Status: Resolved Assessment and plan: Clinically stable. Qualifiers: Urinary tract infection type: site unspecified Hematuria presence: with hematuria Qualified Code(s): N39.0 - Urinary tract infection, site not specified; R31.9 - Hematuria, unspecified (8) Elevated bilirubin Current Visit: No Status: Acute Assessment and plan: Apparently improving. (9) Constipation Current Visit: Yes Status: Acute Assessment and plan: Apparently improving but will need to watch her bowel regimen. Qualifiers: Constipation type: slow transit constipation Qualified Code(s): K59.01 - Slow transit constipation (10) Parkinsons disease Current Visit: Yes Status: Acute Assessment and plan: Clinically stable (11) Depression Current Visit: Yes Status: Acute Assessment and plan: Apparently, clinically stable. We will continue current regimen. Qualifiers: Depression Type: major depressive disorder Major depression recurrence: unspecified whether recurrent Major depression episode severity: unspecified Qualified Code(s): F32.9 - Major depressive disorder, single episode, unspecified (12) Atelectasis Current Visit: Yes Status: Acute Assessment and plan: No rales are heard today. (13) Urinary retention with incomplete bladder emptying Current Visit: Yes Status: Acute Assessment and plan: Apparently, the patient has been on Urecholine for about 4-1/2 years. However, she was straight cathetered only at the time of her stroke and not at home, at all. Nor did she have a chronic indwelling Bertrand. This per granddaughter history. She is known to have problems during her recent hospitalization. She also received a scopolamine patch for a day or 2, for nausea. We discussed how this might have caused bladder dysfunction. I told her about bladder training with clamping of the Bertrand and hope to see this improve. I explained to nursing that we need to keep the Bertrand catheter clamped as much as possible and allow it to be removed every 6 hours or more frequently if patient has the urge to urinate. The idea time this is to increase bladder tone. - Time Spent With Patient I spent more than 35 minutes between patient assessment and interview as well as education of family is noted. - Subjective Interval history: The patient is in better spirits and seems to be functioning better, today. I spoke with her granddaughter and brother present and discussed issues, at length. Please see details in assessment and plan. She was able to take all of her medications and to eat and drink, today. She has only minimal abdominal pain. She was much more understandable then she has been previously. She has no complaints. She states that she is moving her bowels but needs to move them better. She attributes this to not eating. Patient has no complaint of chest discomfort, dyspnea, orthopnea, palpitations, nausea or vomiting, constipation or diarrhea, other changes in bowel habits, difficulty with urination, rash or itching, or other new complaints, except as mentioned above. Review of systems is otherwise negative. I discussed management of her care with nursing staff. - Constitutional Vitals: Temp Pulse Resp BP Pulse Ox 98.2 F 66 16 99/63 91 06/08/18 08:02 06/08/18 08:02 06/08/18 08:02 06/08/18 08:02 06/08/18 08:02 Exam: Examination: (Except as mentioned above): General: In no apparent distress. Alert and oriented 3. Nondiaphoretic. Head: Atraumatic and normocephalic. Respiratory: No use of accessory muscles. Lungs are clear throughout. Normal airflow. Cardiovascular: Regular rate and rhythm without murmur appreciated. Abdomen: Bowel sounds are normal. No hepatosplenomegaly mass or change in tenderness appreciated. This means that she has mild abdominal wall tenderness without guarding or rebound or any change significant of ileus, etc. Obese and therefore difficult to palpate deeply. Patient is examined upright in chair and this also limits exam. Extremities: No cyanosis clubbing or change in edema. Skin: Warm and non-diaphoretic with no new lesions noted. Neurologically, she still has dysphonia but she is easier to understand than previous. Internal Medicine: Result - Labs CBC & Chem 7: 06/05/18 05:10 06/05/18 05:10 Consult Discharge Plan - Plan Referrals: Jose Francisco Trotter DO [Primary Care Provider] -
--- NOTE | 2018-06-08 15:27 | Internal Med Progress Note ---
Date of Encounter: 06/08/18 Time of Encounter: 12:00 - Assessment and plan (1) Intractable nausea and vomiting Current Visit: Yes Status: Acute Qualifiers: Vomiting type: unspecified Qualified Code(s): R11.2 - Nausea with vomiting, unspecified (2) Left leg weakness Current Visit: No Status: Acute (3) Dysarthria Current Visit: Yes Status: Acute (4) S/P laparoscopic cholecystectomy Current Visit: Yes Status: Acute (5) Hypokalemia Current Visit: No Status: Acute (6) DVT prophylaxis Current Visit: No Status: Acute (7) UTI (urinary tract infection) Current Visit: No Status: Resolved Qualifiers: Urinary tract infection type: site unspecified Hematuria presence: with hematuria Qualified Code(s): N39.0 - Urinary tract infection, site not specified; R31.9 - Hematuria, unspecified (8) Elevated bilirubin Current Visit: No Status: Acute (9) Constipation Current Visit: Yes Status: Acute Qualifiers: Constipation type: slow transit constipation Qualified Code(s): K59.01 - Slow transit constipation (10) Parkinsons disease Current Visit: Yes Status: Acute (11) Depression Current Visit: Yes Status: Acute Qualifiers: Depression Type: major depressive disorder Major depression recurrence: unspecified whether recurrent Major depression episode severity: unspecified Qualified Code(s): F32.9 - Major depressive disorder, single episode, unspecified (12) Atelectasis Current Visit: Yes Status: Acute (13) Urinary retention with incomplete bladder emptying Current Visit: Yes Status: Acute - Subjective Interval history: The patient is feeling well. She is without complaint. She is concerned about the amount of drainage persists at her wound at the tibial plateau area. She notes no fevers or chills or sweats. She is to have orthopedic follow-up, tomorrow. Patient has no complaint of chest discomfort, dyspnea, orthopnea, palpitations, nausea or vomiting, constipation or diarrhea, other changes in bowel habits, difficulty with urination, rash or itching, or other new complaints, except as mentioned above. Review of systems is otherwise negative. I discussed management of her care with nursing staff. - Constitutional Vitals: Temp Pulse Resp BP Pulse Ox 98.2 F 66 16 99/63 91 06/08/18 08:02 06/08/18 08:02 06/08/18 08:02 06/08/18 08:02 06/08/18 08:02 Internal Medicine: Result - Labs CBC & Chem 7: 06/05/18 05:10 06/05/18 05:10 Consult Discharge Plan - Plan Referrals: Jose Francisco Trotter DO [Primary Care Provider] -
[2018-06-08] MEDS: Acetaminophen 325 MG TABLET PO PRN (20:18)
[2018-06-09] MEDS: *HR* Heparin 5,000 UNIT/ML VIAL SQ SCH ×2 (05:43→17:50)
[2018-06-09] MEDS: 0.9 % Sodium Chloride 1,000 ML IVC SCH ×2 (06:19→11:18)
[2018-06-09] MEDS: Gabapentin 300 MG CAPSULE PO SCH ×2 (09:07→19:56)
[2018-06-09] MEDS: Aspirin 81 MG TAB.CHEW PO SCH (09:07)
[2018-06-09] MEDS: Carbidopa/Levodopa ER 50/200 TABLET PO SCH ×2 (09:07→19:56)
[2018-06-09] MEDS: amLODIPine 5 MG TABLET PO SCH (09:08)
[2018-06-09] MEDS: Acetaminophen 325 MG TABLET PO PRN ×2 (09:16→19:57)
--- NOTE | 2018-06-09 10:33 | Internal Med Progress Note ---
Addendum entered and electronically signed by Anika Hernandez 06/11/18 13:28: I have personally performed a face to face evaluation on this patient. I have reviewed and agree with the care plan. Original Note: Date of Encounter: 06/09/18 Time of Encounter: 10:31 - Assessment and plan (1) S/P laparoscopic cholecystectomy Current Visit: Yes Status: Acute Assessment and plan: No acute issues. Surgical incision appears healthy. Patient denies any discomforts. Patient participating in physical therapy. (2) Parkinsons disease Current Visit: Yes Status: Acute Assessment and plan: Patient continues with moderate generalized weakness. Physical therapy and progressing well. (3) Malnutrition Current Visit: Yes Status: Acute Assessment and plan: Patient with history of mild malnutrition. Discussion between Dr. David and family on possible PEG tube placement. Nursing has reported that patient has had a slight increase in oral intake over the past few days. Recent albumin 2.9. - Time Spent With Patient less than 15 minutes - Subjective Interval history: Patient appears relaxed but currently complaints of moderate pain to her sacral decubitus site. Patient denies any shortness of breath. Patient does complain of slight nausea this morning, but denies any vomiting. Nursing reports patient has had an increase in oral intake over the past several days - Constitutional Vitals: Temp Pulse Resp BP Pulse Ox 98.5 F 74 14 103/62 94 06/09/18 07:46 06/09/18 07:46 06/09/18 07:46 06/09/18 07:46 06/09/18 07:46 General appearance: Present: cooperative, A&O X 3, pleasant, no acute distress, answers questions appropriately - Head Head exam: Present: atraumatic, normocephalic - Eye Eye exam: Present: PERRL, conjuntiva pink, sclera anicteric Pupils: Present: PERRL - Neck Neck exam general surgery: Present: supple, trachea midline. Absent: lymphadenopathy - Respiratory Respiratory exam: Present: CTAB. Absent: accessory muscle use, rales, rhonchi, wheezes Additional comments: Lungs are clear throughout upper schwarz with fine bibasilar rales heard posteriorly. Respiratory effort appears relaxed. No productive cough. - Cardiovascular Cardiovascular exam: Present: RRR, +S1, +S2. Absent: diastolic murmur, gallop, rubs, systolic murmur - GI/Abdominal GI/Abdominal exam: Present: normal bowel sounds, soft, no peritoneal signs. Absent: distended, tenderness Additional comments: Patient with stab wounds related to her laparoscopic surgery, which all appear intact and healthy - Extremities Exam Extremities exam: Present: warm, radial pulses palpable and symmetrical. Absent: calf tenderness, cyanotic, pedal edema - Neurological Exam Neurological exam: Present: CN II-XII intact, oriented X3, no focal deficits. Absent: pronater drift, facial droop, speech deficit - Skin Skin exam: Present: dry, intact Internal Medicine: Result - Labs CBC & Chem 7: 06/05/18 05:10 06/05/18 05:10 Consult Discharge Plan - Plan Referrals: Jose Francisco Trotter DO [Primary Care Provider] -
[2018-06-09] MEDS: Megestrol Acetate 400 MG/10 ML UDC PO SCH (15:54)
[2018-06-10] MEDS: *HR* Heparin 5,000 UNIT/ML VIAL SQ SCH ×2 (05:06→17:43)
[2018-06-10] MEDS: Carbidopa/Levodopa ER 50/200 TABLET PO SCH ×2 (09:30→22:41)
[2018-06-10] MEDS: Aspirin 81 MG TAB.CHEW PO SCH (09:30)
[2018-06-10] MEDS: Gabapentin 300 MG CAPSULE PO SCH ×2 (09:30→22:41)
[2018-06-10] MEDS: amLODIPine 5 MG TABLET PO SCH (09:30)
[2018-06-10] MEDS: Megestrol Acetate 400 MG/10 ML UDC PO SCH (09:30)
--- NOTE | 2018-06-10 17:49 | Internal Med Progress Note ---
Date of Encounter: 06/10/18 Time of Encounter: 12:20 - Subjective Interval history: - Assessment and plan (1) S/P laparoscopic cholecystectomy Current Visit: Yes Status: Acute Assessment and plan: No acute issues. Surgical incision appears healthy. Patient denies any discomforts. Patient participating in physical therapy. (2) Parkinsons disease Current Visit: Yes Status: Acute Assessment and plan: Patient continues with moderate generalized weakness. Physical therapy and progressing well. (3) Malnutrition Current Visit: Yes Status: Acute Assessment and plan: Patient with history of mild malnutrition. Discussion between Dr. David and family on possible PEG tube placement. Nursing has reported that patient has had a slight increase in oral intake over the past few days. Recent albumin 2.9. - Time Spent With Patient less than 15 minutes - Subjective Interval history: Patient appears relaxed but currently complaints of moderate pain to her sacral decubitus site. Patient denies any shortness of breath. Patient does complain of slight nausea this morning, but denies any vomiting. Nursing reports patient has had an increase in oral intake over the past several days - EXAM General appearance: Present: cooperative, A&O X 3, pleasant, no acute distress, answers questions appropriately - Head Head exam: Present: atraumatic, normocephalic - Eye Eye exam: Present: PERRL, conjuntiva pink, sclera anicteric Pupils: Present: PERRL - Neck Neck exam general surgery: Present: supple, trachea midline. Absent: lymphadenopathy - Respiratory Respiratory exam: Present: CTAB. Absent: accessory muscle use, rales, rhonchi, wheezes Additional comments: Lungs are clear throughout upper schwarz with fine bibasilar rales heard posteriorly. Respiratory effort appears relaxed. No productive cough. - Cardiovascular Cardiovascular exam: Present: RRR, +S1, +S2. Absent: diastolic murmur, gallop, rubs, systolic murmur - GI/Abdominal GI/Abdominal exam: Present: normal bowel sounds, soft, no peritoneal signs. Absent: distended, tenderness Additional comments: Patient with stab wounds related to her laparoscopic surgery, which all appear intact and healthy - Extremities Exam Extremities exam: Present: warm, radial pulses palpable and symmetrical. Absent: calf tenderness, cyanotic, pedal edema - Neurological Exam Neurological exam: Present: CN II-XII intact, oriented X3, no focal deficits. Absent: pronater drift, facial droop, speech deficit - Skin Skin exam: Present: dry, intact - Constitutional Vitals: Temp Pulse Resp BP Pulse Ox 98.7 F 71 15 91/53 96 06/10/18 07:52 06/10/18 07:52 06/10/18 07:52 06/10/18 07:52 06/10/18 07:52 Internal Medicine: Result - Labs CBC & Chem 7: 06/05/18 05:10 06/05/18 05:10 Consult Discharge Plan - Plan Referrals: Jose Francisco Trotter DO [Primary Care Provider] -
[2018-06-10] MEDS: Acetaminophen 325 MG TABLET PO PRN (22:43)
[2018-06-11] MEDS: Acetaminophen 325 MG TABLET PO PRN ×2 (06:33→21:56)
[2018-06-11] MEDS: *HR* Heparin 5,000 UNIT/ML VIAL SQ SCH ×2 (06:33→18:06)
[2018-06-11] MEDS: Aspirin 81 MG TAB.CHEW PO SCH (09:10)
[2018-06-11] MEDS: Megestrol Acetate 400 MG/10 ML UDC PO SCH (09:10)
[2018-06-11] MEDS: amLODIPine 5 MG TABLET PO SCH (09:10)
[2018-06-11] MEDS: Carbidopa/Levodopa ER 50/200 TABLET PO SCH ×2 (09:10→21:53)
[2018-06-11] MEDS: Gabapentin 300 MG CAPSULE PO SCH ×2 (09:10→21:52)
--- NOTE | 2018-06-11 13:32 | Internal Med Progress Note ---
Date of Encounter: 06/11/18 Time of Encounter: 13:10 - Subjective Interval history: - Assessment and plan (1) S/P laparoscopic cholecystectomy Current Visit: Yes Status: Acute Assessment and plan: Pt not eating well. Discussed with director of plant operations Started on megace Surgical incision appears healthy. Patient denies any discomforts. Patient participating in physical therapy. (2) Parkinsons disease Current Visit: Yes Status: Acute Assessment and plan: Patient continues with moderate generalized weakness. Physical therapy and progressing well. (3) Malnutrition Current Visit: Yes Status: Acute Assessment and plan: Patient with history of mild malnutrition. as above started on megace, has supplement Discussion between Dr. David and family on possible PEG tube placement. Nursing has reported that patient has had a slight increase in oral intake over the past few days. - Time Spent With Patient less than 15 minutes - Subjective Interval history: Pt denies new complaints. No acute issues overnight, Patient denies any shortness of breath. Patient does complain of slight nausea this morning, but denies any vomiting. Nursing reports patient has had an increase in oral intake over the past several days - EXAM General appearance: Present: cooperative, A&O X 3, pleasant, no acute distress, answers questions appropriately - Head Head exam: Present: atraumatic, normocephalic - Eye Eye exam: Present: PERRL, conjuntiva pink, sclera anicteric Pupils: Present: PERRL - Neck Neck exam general surgery: Present: supple, trachea midline. Absent: lymphadenopathy - Respiratory Respiratory exam: Present: CTAB. Absent: accessory muscle use, rales, rhonchi, wheezes Additional comments: Lungs are clear throughout upper schwarz with fine bibasilar rales heard posteriorly. Respiratory effort appears relaxed. No productive cough. - Cardiovascular Cardiovascular exam: Present: RRR, +S1, +S2. Absent: diastolic murmur, gallop, rubs, systolic murmur - GI/Abdominal GI/Abdominal exam: Present: normal bowel sounds, soft, no peritoneal signs. Absent: distended, tenderness Additional comments: Patient with stab wounds related to her laparoscopic surgery, which all appear intact and healthy - Extremities Exam Extremities exam: Present: warm, radial pulses palpable and symmetrical. Absent: calf tenderness, cyanotic, pedal edema - Neurological Exam Neurological exam: Present: CN II-XII intact, oriented X3, no focal deficits. Absent: pronater drift, facial droop, speech deficit - Skin Skin exam: Present: dry, intact - Constitutional Vitals: Temp Pulse Resp BP Pulse Ox 97.2 F L 62 15 92/53 93 06/11/18 08:16 06/11/18 08:16 06/11/18 08:16 06/11/18 08:16 06/11/18 08:16 Internal Medicine: Result - Labs CBC & Chem 7: 06/05/18 05:10 06/05/18 05:10 Consult Discharge Plan - Plan Referrals: Jose Francisco Trotter DO [Primary Care Provider] -
[2018-06-12] MEDS: *HR* Heparin 5,000 UNIT/ML VIAL SQ SCH ×2 (06:19→17:39)
[2018-06-12] MEDS: Acetaminophen 325 MG TABLET PO PRN ×2 (06:19→22:13)
[2018-06-12] MEDS: Megestrol Acetate 400 MG/10 ML UDC PO SCH (08:07)
[2018-06-12] MEDS: Aspirin 81 MG TAB.CHEW PO SCH (08:07)
[2018-06-12] MEDS: Carbidopa/Levodopa ER 50/200 TABLET PO SCH ×2 (08:07→22:12)
[2018-06-12] MEDS: amLODIPine 5 MG TABLET PO SCH (08:07)
[2018-06-12] MEDS: Gabapentin 300 MG CAPSULE PO SCH ×2 (08:07→22:13)
--- NOTE | 2018-06-12 13:23 | Internal Med Progress Note ---
Addendum entered and electronically signed by George David MD 06/12/18 15:26: I have personally performed a face to face evaluation on this patient. I have r eviewed and agree with the care plan. History and Exam by me shows: The patient is feeling better. She states that she has not had nausea for several days. She is moving her bowels okay. She is drinking better but nursing notes that this is still takes a lot of encouragement. She is eating approximately 50% of her meal trays. She denies other problems. Discussed care with other providers and/or nursing. Patient has no complaint of chest discomfort, dyspnea, orthopnea, palpitations, nausea or vomiting, constipation or diarrhea, other changes in bowel habits, difficulty with urination, rash or itching, or other new complaints, except as mentioned above. Review of systems is otherwise negative. Examination: (Except as mentioned above): General: In no apparent distress. Alert and oriented 3. Nondiaphoretic. Head: Atraumatic and normocephalic. Respiratory: No use of accessory muscles. Lungs are clear throughout. Normal airflow. Cardiovascular: Regular rate and rhythm without murmur appreciated. Abdomen: Bowel sounds are normal. No hepatosplenomegaly mass or tenderness appreciated. Obese and therefore difficult to palpate deeply. Patient is examined upright in chair and this also limits exam. Extremities: No cyanosis clubbing or edema. Skin: Warm and non-diaphoretic with no new lesions noted. We will reassess basic lab work including proteins to see how she is doing and see if her potassium and magnesium have improved. If she is doing better, we will try to discontinue her Bertrand and check postvoid residuals, tomorrow or the next day. Original Note: Date of Encounter: 06/12/18 Time of Encounter: 13:21 - Assessment and plan (1) Intractable nausea and vomiting Current Visit: Yes Status: Acute Assessment and plan: improving. Continue Zofran as needed for nausea. Qualifiers: Vomiting type: unspecified Qualified Code(s): R11.2 - Nausea with vomiting, unspecified (2) Dysarthria Current Visit: Yes Status: Acute Assessment and plan: This is been present since history of CVA. (3) S/P laparoscopic cholecystectomy Current Visit: Yes Status: Acute Assessment and plan: Incision improving. Abdominal pain improving. Follow up with surgeon as scheduled. (4) Parkinsons disease Current Visit: Yes Status: Acute Assessment and plan: Continue medication. Monitor neurological status. Assist with ADLs as necessary. Continue supportive care. - Time Spent With Patient less than 15 minutes - Subjective Interval history: Patient currently sitting up in wheelchair, denies pain. has been able to eat and take medications today. Patient is difficult to communicate with due to dysarthria from history of CVA times 3. Denies any further complaints at this time. - Constitutional Vitals: Temp Pulse Resp BP Pulse Ox 98.7 F 73 16 98/61 94 06/12/18 07:16 06/12/18 07:16 06/12/18 07:16 06/12/18 07:16 06/12/18 07:16 General appearance: Present: cooperative, A&O X 3, pleasant, no acute distress, answers questions appropriately Exam: aphasia - Head Head exam: Present: atraumatic, normocephalic - Eye Eye exam: Present: PERRL, conjuntiva pink, sclera anicteric Pupils: Present: PERRL - Neck Neck exam general surgery: Present: supple, trachea midline. Absent: lymphadenopathy - Respiratory Respiratory exam: Present: CTAB. Absent: accessory muscle use, rales, rhonchi, wheezes - Cardiovascular Cardiovascular exam: Present: RRR, +S1, +S2. Absent: diastolic murmur, gallop, rubs, systolic murmur - GI/Abdominal GI/Abdominal exam: Present: normal bowel sounds, soft, no peritoneal signs. Absent: distended, tenderness - Extremities Exam Extremities exam: Present: warm, radial pulses palpable and symmetrical. Absent: calf tenderness, cyanotic, pedal edema - Neurological Exam Neurological exam: Present: CN II-XII intact, oriented X3, no focal deficits. Absent: pronater drift, facial droop, speech deficit - Skin Skin exam: Present: dry, intact Internal Medicine: Result - Labs CBC & Chem 7: 06/05/18 05:10 06/05/18 05:10 Consult Discharge Plan - Plan Referrals: Jose Francisco Trotter DO [Primary Care Provider] -
[2018-06-13] MEDS: *HR* Heparin 5,000 UNIT/ML VIAL SQ SCH ×2 (06:14→16:48)
[2018-06-13] MEDS: Acetaminophen 325 MG TABLET PO PRN ×2 (06:14→16:52)
[2018-06-13 07:09] LABS: Basophils % 0.4 %; Eosinophils # 0.2 K/mcL (0.0-0.6); Eosinophils % 3.2 %; Hematocrit 27.8 % (35.3-44.9); Hemoglobin 9.3 g/dL (11.5-15.4); Immature Granulocytes % 1.1 % (0-4); Lymphocytes % 40.2 %; Mean Corpuscular HGB Conc 33.5 g/dL (31.6-35.5); Mean Corpuscular Hemoglobin 29.4 pg (28.0-33.3); Mean Platelet Volume 10.8 fL (9.4-12.4); Monocytes # 0.5 K/mcL (0.0-1.3); Monocytes % 6.2 %; Neutrophils # 3.7 K/mcL (1.6-8.9); Nucleated Red Blood Cells 0.3 /100 WBC (0); Platelet Count 222 K/mcL (140-400); Red Blood Count 3.16 M/mcL (3.82-4.97); Red Cell Distribution Width 17.1 % (11.5-14.5); Segmented Neutrophils % 48.9 %
[2018-06-13 07:25] LABS: Alanine Aminotransferase 6 Units/L (7-52); Albumin 2.6 g/dL (3.5-5.7); Albumin/Globulin Ratio 1.3 (1.1-2.2); Alkaline Phosphatase 98 Units/L (34-104); Aspartate Amino Transferase 13 Units/L (13-39); BUN/Creatinine Ratio 21 (6-26); Bilirubin,Total 0.6 mg/dL (0.3-1.0); Blood Urea Nitrogen 13 mg/dL (8-23); Calcium 8.6 mg/dL (8.6-10.3); Carbon Dioxide 29 mEq/L (23-29); Chloride 107 mEq/L (98-107); Glucose 89 mg/dL (70-105); Magnesium 1.4 mg/dL (1.6-2.6); Osmolality,Calculated 292 (280-300); Sodium 141 mEq/L (136-145); Total Protein 4.6 g/dL (6.4-8.9); eGFR For Non-African Americans > 60 (> 60)
[2018-06-13] MEDS: Carbidopa/Levodopa ER 50/200 TABLET PO SCH ×2 (08:25→20:16)
[2018-06-13] MEDS: amLODIPine 5 MG TABLET PO SCH (08:25)
[2018-06-13] MEDS: Gabapentin 300 MG CAPSULE PO SCH ×2 (08:25→20:15)
[2018-06-13] MEDS: Aspirin 81 MG TAB.CHEW PO SCH (08:25)
[2018-06-13] MEDS: Megestrol Acetate 400 MG/10 ML UDC PO SCH (08:25)
--- NOTE | 2018-06-13 10:36 | Internal Med Progress Note ---
Date of Encounter: 06/13/18 Time of Encounter: 10:34 - Assessment and plan (1) S/P laparoscopic cholecystectomy Current Visit: Yes Status: Acute Assessment and plan: No acute issues. Surgical incision appears healthy. Patient denies any discomforts. Patient participating in physical therapy. (2) Parkinsons disease Current Visit: Yes Status: Acute Assessment and plan: Patient continues with moderate generalized weakness. Physical therapy and progressing well. (3) Malnutrition Current Visit: Yes Status: Acute Assessment and plan: Patient with history of mild malnutrition. Patient continues to have episodes of nausea with questionable oral intake. Patient continues on Megace at this time. - Time Spent With Patient less than 15 minutes - Subjective Interval history: Patient appears relaxed and currently denies any discomforts and shortness of breath. Patient currently in chair at bedside and states that her physical therapy has been progressing well. Patient states she continues to have some difficulty with eating and that this morning she became nauseated after having her morning medications. Patient states that her nausea resolved after short time and currently denies any issues - Constitutional Vitals: Temp Pulse Resp BP Pulse Ox 98.2 F 64 15 95/60 95 06/13/18 08:19 06/13/18 08:19 06/13/18 08:19 06/13/18 08:19 06/13/18 08:19 General appearance: Present: cooperative, A&O X 3, pleasant, no acute distress, answers questions appropriately - Head Head exam: Present: atraumatic, normocephalic - Eye Eye exam: Present: PERRL, conjuntiva pink, sclera anicteric Pupils: Present: PERRL - Neck Neck exam general surgery: Present: supple, trachea midline. Absent: lymphadenopathy - Respiratory Respiratory exam: Present: CTAB. Absent: accessory muscle use, rales, rhonchi, wheezes Additional comments: Lungs clear throughout upper thrills noted fine scattered rales to lower half posterior schwarz. No productive cough noted. Respiratory effort appears relaxed. - Cardiovascular Cardiovascular exam: Present: RRR, +S1, +S2. Absent: diastolic murmur, gallop, rubs, systolic murmur - GI/Abdominal GI/Abdominal exam: Present: normal bowel sounds, soft, no peritoneal signs. Absent: distended, tenderness Additional comments: Abd surgical wounds remains healthy and intact. - Extremities Exam Extremities exam: Present: pedal edema, warm, radial pulses palpable and symmetrical. Absent: calf tenderness, cyanotic Additional comments: +1 pedal edema - Neurological Exam Neurological exam: Present: CN II-XII intact, oriented X3, no focal deficits. Absent: pronater drift, facial droop, speech deficit - Skin Skin exam: Present: dry, intact Additional comments: Patient with a possible stage II decubitus to her sacrum. Internal Medicine: Result - Labs CBC & Chem 7: 06/13/18 06:45 06/13/18 06:45 Labs: Short CBC 06/13/18 Range/Units 06:45 WBC 7.5 (4.3-11.1) K/mcL Hgb 9.3 L (11.5-15.4) g/dL Hct 27.8 L (35.3-44.9) % Plt Count 222 (140-400) K/mcL Neutrophils # 3.7 (1.6-8.9) K/mcL BMP 06/13/18 06:45 Sodium 141 Potassium 3.0 L Chloride 107 Carbon Dioxide 29 BUN 13 Creatinine 0.63 Glucose 89 Calcium 8.6 Liver Function 06/13/18 Range/Units 06:45 Total Bilirubin 0.6 (0.3-1.0) mg/dL AST 13 (13-39) Units/L ALT 6 L (7-52) Units/L Alkaline Phosphatase 98 (34-104) Units/L Albumin 2.6 L (3.5-5.7) g/dL Consult Discharge Plan - Plan Referrals: Jose Francisco Trotter DO [Primary Care Provider] -
[2018-06-14] MEDS: *HR* Heparin 5,000 UNIT/ML VIAL SQ SCH ×2 (05:59→17:20)
[2018-06-14] MEDS: amLODIPine 5 MG TABLET PO SCH (09:20)
[2018-06-14] MEDS: Carbidopa/Levodopa ER 50/200 TABLET PO SCH ×2 (09:21→20:56)
[2018-06-14] MEDS: Gabapentin 300 MG CAPSULE PO SCH ×2 (09:21→20:55)
[2018-06-14] MEDS: Megestrol Acetate 400 MG/10 ML UDC PO SCH (09:22)
[2018-06-14] MEDS: Aspirin 81 MG TAB.CHEW PO SCH (09:22)
--- NOTE | 2018-06-14 14:33 | Internal Med Progress Note ---
Addendum entered and electronically signed by Anika Hernandez 06/15/18 14:32: I have personally performed a face to face evaluation on this patient. I have re viewed and agree with the care plan. PT has had malabsorption and loose stool She has low Magnesium in spite of taking magnesium She has low K She has been taking K Actions: Will stop PPI and change to pepcid Likely pancreatic insufficiency symptomatic will start pancreatic enzyme 2 caps tid with meals should stay on this will help absorb nutrients Original Note: Date of Encounter: 06/14/18 Time of Encounter: 14:31 - Assessment and plan (1) S/P laparoscopic cholecystectomy Current Visit: Yes Status: Acute Assessment and plan: Incision improving. Abdominal pain improving. Follow up with surgeon as scheduled. (2) Dysarthria Current Visit: Yes Status: Acute Assessment and plan: This is been present since history of CVA. (3) Parkinsons disease Current Visit: Yes Status: Acute Assessment and plan: Continue medication. Monitor neurological status. Assist with ADLs as necessary. Continue supportive care. - Time Spent With Patient less than 15 minutes - Subjective Interval history: Patient currently sitting up in wheelchair, denies pain. has been able to eat and take medications today. Patient is difficult to communicate with due to dysarthria from history of CVA times 3. Denies any further complaints at this time. - Constitutional Vitals: Temp Pulse Resp BP Pulse Ox 98.3 F 68 16 97/63 95 06/14/18 06:53 06/14/18 06:53 06/14/18 06:53 06/14/18 06:53 06/14/18 06:53 General appearance: Present: cooperative, A&O X 3, pleasant, no acute distress, answers questions appropriately Exam: aphasic - Head Head exam: Present: atraumatic, normocephalic - Eye Eye exam: Present: PERRL, conjuntiva pink, sclera anicteric Pupils: Present: PERRL - Neck Neck exam general surgery: Present: supple, trachea midline. Absent: lymphadenopathy - Respiratory Respiratory exam: Present: CTAB. Absent: accessory muscle use, rales, rhonchi, wheezes - Cardiovascular Cardiovascular exam: Present: RRR, +S1, +S2. Absent: diastolic murmur, gallop, rubs, systolic murmur - GI/Abdominal GI/Abdominal exam: Present: normal bowel sounds, soft, no peritoneal signs. Absent: distended, tenderness - Extremities Exam Extremities exam: Present: warm, radial pulses palpable and symmetrical. Absen t: calf tenderness, cyanotic, pedal edema - Neurological Exam Neurological exam: Present: CN II-XII intact, oriented X3, no focal deficits. Absent: pronater drift, facial droop, speech deficit - Skin Skin exam: Present: dry, intact Internal Medicine: Result - Labs CBC & Chem 7: 06/13/18 06:45 06/13/18 06:45 Consult Discharge Plan - Plan Referrals: Jose Francisco Trotter DO [Primary Care Provider] -
[2018-06-15] MEDS: *HR* Heparin 5,000 UNIT/ML VIAL SQ SCH ×2 (04:54→16:52)
[2018-06-15] MEDS: Megestrol Acetate 400 MG/10 ML UDC PO SCH (08:41)
[2018-06-15] MEDS: Gabapentin 300 MG CAPSULE PO SCH ×2 (08:42→19:48)
[2018-06-15] MEDS: Carbidopa/Levodopa ER 50/200 TABLET PO SCH ×2 (08:43→19:48)
[2018-06-15] MEDS: Aspirin 81 MG TAB.CHEW PO SCH (08:43)
[2018-06-15] MEDS: amLODIPine 5 MG TABLET PO SCH (08:43)
[2018-06-15] MEDS: Acetaminophen 325 MG TABLET PO PRN (10:00)
--- NOTE | 2018-06-15 11:24 | Internal Med Progress Note ---
Addendum entered and electronically signed by Anika Hernandez 06/15/18 15:05: RE Appetite and Oral intake PT has been on QID carafate Susp She reports this causes her to loose appetite and not eat meals action will change this to carafate tab BID Addendum entered and electronically signed by Anika Gudelia Hernandez 06/15/18 14:27: I have personally performed a face to face evaluation on this patient. I have reviewed and agree with the care plan. PT has had malabsorption and loose stool She has low Magnesium in spite of taking magnesium She has low K She has been taking K Actions: Will stop PPI and change to pepcid Likely pancreatic insufficiency symptomatic will start pancreatic enzyme 2 caps tid with meals should stay on this will help absorb nutrients will continue oral mag and oral K 20 extra dose K 40 she may need to increase daily to 40 meq will recheck tomorrow and will need periodic check of levels Original Note: Date of Encounter: 06/15/18 Time of Encounter: 11:21 - Assessment and plan (1) S/P laparoscopic cholecystectomy Current Visit: Yes Status: Acute Assessment and plan: No acute issues. Surgical incision appears healthy. Patient denies any discomforts. Patient participating in physical therapy. (2) Parkinsons disease Current Visit: Yes Status: Acute Assessment and plan: Patient continues with moderate generalized weakness. Physical therapy and progressing well. (3) Malnutrition Current Visit: Yes Status: Acute Assessment and plan: Patient with history of mild malnutrition. Patient continues to have episodes of nausea with questionable oral intake. Patient continues on Megace at this time. (4) Headache Current Visit: Yes Status: Acute Assessment and plan: Patient with complaints of headache this morning. Patient has been given when necessary Tylenol. Will evaluate patient's hydration. No neurological changes noted on exam. Qualifiers: Headache type: unspecified Headache chronicity pattern: unspecified pattern Intractability: intractable Qualified Code(s): R51 - Headache - Subjective Interval history: Patient appears relaxed and currently denies any discomforts and shortness of breath. Patient currently in chair at bedside and states that her physical therapy has been progressing well. Patient with complaints of a headache this morning. Patient states that she occasionally has migraines at home. Denies any visual changes. Denies any photosensitivity. - Constitutional Vitals: Temp Pulse Resp BP Pulse Ox 98.3 F 14 14 117/75 99 06/15/18 07:36 06/15/18 07:36 06/15/18 07:36 06/15/18 07:36 06/15/18 07:36 General appearance: Present: cooperative, A&O X 3, pleasant, no acute distress, answers questions appropriately - Head Head exam: Present: atraumatic, normocephalic - Eye Eye exam: Present: PERRL, conjuntiva pink, sclera anicteric Pupils: Present: PERRL - Neck Neck exam general surgery: Present: supple, trachea midline. Absent: lymphadenopathy - Respiratory Respiratory exam: Present: CTAB. Absent: accessory muscle use, rales, rhonchi, wheezes - Cardiovascular Cardiovascular exam: Present: RRR, +S1, +S2. Absent: diastolic murmur, gallop, rubs, systolic murmur - GI/Abdominal GI/Abdominal exam: Present: normal bowel sounds, soft, no peritoneal signs. Absent: distended, tenderness Additional comments: Laparoscopic surgical wounds appear to be healing well. - Extremities Exam Extremities exam: Present: pedal edema, warm, radial pulses palpable and symmetrical. Absent: calf tenderness, cyanotic Additional comments: Patient with nonpitting edema to bilateral lower legs. - Neurological Exam Neurological exam: Present: CN II-XII intact, oriented X3, no focal deficits. Absent: pronater drift, facial droop, speech deficit - Skin Skin exam: Present: dry, intact Internal Medicine: Result - Labs CBC & Chem 7: 06/13/18 06:45 06/13/18 06:45 Consult Discharge Plan - Plan Referrals: Jose Francisco Trotter DO [Primary Care Provider] -
[2018-06-15] MEDS: Famotidine 20 MG TABLET PO SCH (16:52)
[2018-06-15] MEDS: Sucralfate 1 GM TABLET PO SCH (16:52)
[2018-06-16 05:12] LABS: BUN/Creatinine Ratio 16 (6-26); Blood Urea Nitrogen 10 mg/dL (8-23); Calcium 9.1 mg/dL (8.6-10.3); Carbon Dioxide 26 mEq/L (23-29); Chloride 109 mEq/L (98-107); Glucose 86 mg/dL (70-105); Osmolality,Calculated 282 (280-300); Potassium 5.2 mEq/L (3.5-5.1); Sodium 137 mEq/L (136-145); eGFR For Non-African Americans > 60 (> 60)
[2018-06-16] MEDS: *HR* Heparin 5,000 UNIT/ML VIAL SQ SCH ×2 (05:16→18:12)
[2018-06-16] MEDS: Sucralfate 1 GM TABLET PO SCH ×2 (05:17→18:12)
[2018-06-16] MEDS: Famotidine 20 MG TABLET PO SCH ×2 (05:17→18:12)
[2018-06-16] MEDS: Megestrol Acetate 400 MG/10 ML UDC PO SCH (09:24)
[2018-06-16] MEDS: Aspirin 81 MG TAB.CHEW PO SCH (09:25)
[2018-06-16] MEDS: amLODIPine 5 MG TABLET PO SCH (09:26)
[2018-06-16] MEDS: Carbidopa/Levodopa ER 50/200 TABLET PO SCH ×2 (09:26→20:24)
[2018-06-16] MEDS: Acetaminophen 325 MG TABLET PO PRN ×2 (09:26→20:25)
[2018-06-16] MEDS: Gabapentin 300 MG CAPSULE PO SCH ×2 (09:27→20:24)
--- NOTE | 2018-06-16 13:40 | Internal Med Progress Note ---
Date of Encounter: 06/16/18 Time of Encounter: 13:50 - Assessment and plan (1) S/P laparoscopic cholecystectomy Current Visit: Yes Status: Acute Assessment and plan: No acute issues. Surgical incision appears healthy. Patient denies any discomforts. Patient participating in physical therapy. (2) Parkinsons disease Current Visit: Yes Status: Acute Assessment and plan: Patient continues with moderate generalized weakness. Physical therapy and progressing well. (3) Malnutrition Current Visit: Yes Status: Acute Assessment and plan: Patient with history of mild malnutrition. Nursing states that patient has had increased oral intake. Patient continues on Megace at this time. (4) Urinary retention Current Visit: Yes Status: Chronic Assessment and plan: Will DC xavier and follow up with bladder scans - Time Spent With Patient less than 15 minutes - Subjective Interval history: Patient appears relaxed and currently denies any discomforts and shortness of breath. Patient currently in chair at bedside and states that her physical therapy has been progressing well. - Constitutional Vitals: Temp Pulse Resp BP Pulse Ox 97.8 F 71 16 110/70 98 06/16/18 07:15 06/16/18 07:15 06/16/18 07:15 06/16/18 07:15 06/16/18 07:15 General appearance: Present: cooperative, A&O X 3, pleasant, no acute distress, answers questions appropriately - Head Head exam: Present: atraumatic, normocephalic - Eye Eye exam: Present: PERRL, conjuntiva pink, sclera anicteric Pupils: Present: PERRL - Neck Neck exam general surgery: Present: supple, trachea midline. Absent: lymphadenopathy - Respiratory Respiratory exam: Present: CTAB. Absent: accessory muscle use, rales, rhonchi, wheezes - Cardiovascular Cardiovascular exam: Present: RRR, +S1, +S2. Absent: diastolic murmur, gallop, rubs, systolic murmur - GI/Abdominal GI/Abdominal exam: Present: normal bowel sounds, soft, no peritoneal signs. Absent: distended, tenderness Additional comments: abdominal surgical wound remain dry and intact. - Extremities Exam Extremities exam: Present: warm, radial pulses palpable and symmetrical. Absent: calf tenderness, cyanotic, pedal edema Additional comments: slight pedal edema - Neurological Exam Neurological exam: Present: CN II-XII intact, oriented X3, no focal deficits. Absent: pronater drift, facial droop, speech deficit - Skin Skin exam: Present: dry, intact Internal Medicine: Result - Labs CBC & Chem 7: 06/13/18 06:45 06/16/18 04:37 Labs: BMP 06/16/18 04:37 Sodium 137 Potassium 5.2 H Chloride 109 H Carbon Dioxide 26 BUN 10 Creatinine 0.63 Glucose 86 Calcium 9.1 Consult Discharge Plan - Plan Referrals: Jose Francisco Trotter DO [Primary Care Provider] -
[2018-06-17] MEDS: *HR* Heparin 5,000 UNIT/ML VIAL SQ SCH ×2 (05:33→17:01)
[2018-06-17] MEDS: Famotidine 20 MG TABLET PO SCH ×2 (05:34→17:01)
[2018-06-17] MEDS: Sucralfate 1 GM TABLET PO SCH ×2 (05:34→17:01)
[2018-06-17] MEDS: Aspirin 81 MG TAB.CHEW PO SCH (08:58)
[2018-06-17] MEDS: Megestrol Acetate 400 MG/10 ML UDC PO SCH (08:58)
[2018-06-17] MEDS: amLODIPine 5 MG TABLET PO SCH (08:59)
[2018-06-17] MEDS: Carbidopa/Levodopa ER 50/200 TABLET PO SCH ×2 (08:59→19:50)
[2018-06-17] MEDS: Gabapentin 300 MG CAPSULE PO SCH ×2 (08:59→19:51)
--- NOTE | 2018-06-17 11:17 | Internal Med Progress Note ---
Date of Encounter: 06/18/18 Time of Encounter: 10:14 - Subjective Interval history: - Assessment and plan (1) S/P laparoscopic cholecystectomy Current Visit: Yes Status: Acute Assessment and plan: Pt not eating well. Discussed with restaurant cashier Started on megace several days ago helping her eating better Surgical incision appears healthy. Patient denies any discomforts. Patient participating in physical therapy. (2) Parkinsons disease Current Visit: Yes Status: Acute Assessment and plan: Patient continues with moderate generalized weakness. Physical therapy and progressing well. Symptoms stable (3) Malnutrition Current Visit: Yes Status: Acute Assessment and plan: Patient with history of mild malnutrition. as above started on megace, has supplement For last few days Now eating better - Time Spent With Patient less than 15 minutes - Subjective Interval history: PT had xavier out Will check bladder scans no abd pain eating better speech some clearer still very [place] getting stronger with therapy No acute issues overnight, Patient denies any shortness of breath. Nursing reports patient has had an increase in oral intake over the past several days - EXAM General appearance: Present: cooperative, A&O X 3, pleasant, no acute distress, answers questions appropriately appears better eye contact better effort - Head Head exam: Present: atraumatic, normocephalic - Eye Eye exam: Present: PERRL, conjuntiva pink, sclera anicteric Pupils: Present: PERRL - Neck Neck exam general surgery: Present: supple, trachea midline. Absent: lymphadenopathy - Respiratory Respiratory exam: Present: CTAB. Absent: accessory muscle use, rales, rhonchi, wheezes Additional comments: Lungs are clear throughout upper schwarz with fine bibasilar rales heard posteriorly. Respiratory effort appears relaxed. No productive cough. - Cardiovascular Cardiovascular exam: Present: RRR, +S1, +S2. Absent: diastolic murmur, gallop, rubs, systolic murmur - GI/Abdominal GI/Abdominal exam: Present: normal bowel sounds, soft, no peritoneal signs. Absent: distended, tenderness Additional comments: Patient with stab wounds related to her laparoscopic surgery, which all appear intact and healthy - Extremities Exam Extremities exam: Present: warm, radial pulses palpable and symmetrical. Absent: calf tenderness, cyanotic, pedal edema - Neurological Exam Neurological exam: Present: CN II-XII intact, oriented X3, no focal deficits. Absent: pronater drift, facial droop, speech deficit - Skin Skin exam: Present: dry, intact - Constitutional Vitals: Temp Pulse Resp BP Pulse Ox 98.0 F 70 16 107/68 97 06/17/18 06:53 06/17/18 06:53 06/17/18 06:53 06/17/18 06:53 06/17/18 06:53 Internal Medicine: Result - Labs CBC & Chem 7: 06/13/18 06:45 06/16/18 04:37 Consult Discharge Plan - Plan Referrals: Jose Francisco Trotter DO [Primary Care Provider] -
[2018-06-17] MEDS: Acetaminophen 325 MG TABLET PO PRN (14:25)
[2018-06-18] MEDS: *HR* Heparin 5,000 UNIT/ML VIAL SQ SCH ×2 (05:34→17:05)
[2018-06-18] MEDS: Sucralfate 1 GM TABLET PO SCH ×2 (05:35→16:05)
[2018-06-18] MEDS: Famotidine 20 MG TABLET PO SCH ×2 (05:35→16:05)
[2018-06-18] MEDS: Megestrol Acetate 400 MG/10 ML UDC PO SCH (09:08)
[2018-06-18] MEDS: Gabapentin 300 MG CAPSULE PO SCH ×2 (09:08→19:34)
[2018-06-18] MEDS: Acetaminophen 325 MG TABLET PO PRN (09:08)
[2018-06-18] MEDS: amLODIPine 5 MG TABLET PO SCH (09:08)
[2018-06-18] MEDS: Aspirin 81 MG TAB.CHEW PO SCH (09:09)
[2018-06-18] MEDS: Carbidopa/Levodopa ER 50/200 TABLET PO SCH ×2 (09:09→19:35)
--- NOTE | 2018-06-18 11:40 | Internal Med Progress Note ---
Date of Encounter: 06/18/18 Time of Encounter: 11:04 - Subjective Interval history: - Assessment and plan (1) S/P laparoscopic cholecystectomy Current Visit: Yes Status: Acute Assessment and plan: Pt not eating well. Discussed with border machine operator Started on megace several days ago helping her eating better Surgical incision appears healthy. Patient denies any discomforts. Patient participating in physical therapy. (2) Parkinsons disease Current Visit: Yes Status: Acute Assessment and plan: Patient continues with moderate generalized weakness. Physical therapy and progressing well. Symptoms stable (3) Malnutrition Current Visit: Yes Status: Acute Assessment and plan: Patient with history of mild malnutrition. as above started on megace, has supplement For last few days Now eating better - Time Spent With Patient less than 15 minutes - Subjective Interval history: PT had xavier out Will check bladder scans no abd pain eating better speech some clearer still very [place] getting stronger with therapy No acute issues overnight, Patient denies any shortness of breath. Nursing reports patient has had an increase in oral intake over the past several days - EXAM General appearance: Present: thin WF cooperative, A&O X 3, pleasant, appears better eye contact better effort - Head Head exam: Present: atraumatic, normocephalic - Eye Eye exam: Present: PERRL, conjuntiva pink, sclera anicteric Pupils: Present: PERRL - Neck Neck exam general surgery: Present: supple, trachea midline. Absent: lymphadenopathy - Respiratory Respiratory exam: Present: CTAB. Absent: accessory muscle use, rales, rhonchi, wheezes Additional comments: Lungs are clear throughout upper schwarz with fine bibasilar rales heard posteriorly. Respiratory effort appears relaxed. No productive cough. - Cardiovascular Cardiovascular exam: Present: RRR, +S1, +S2. Absent: diastolic murmur, gallop, rubs, systolic murmur - GI/Abdominal GI/Abdominal exam: Present: normal bowel sounds, soft, no peritoneal signs. Absent: distended, tenderness Additional comments: Patient with stab wounds related to her laparoscopic surgery, which all appear intact and healthy - Extremities Exam Extremities exam: Present: warm, radial pulses palpable and symmetrical. Absent: calf tenderness, cyanotic, pedal edema - Neurological Exam Neurological exam: Present: CN II-XII intact, oriented X3, no focal deficits. Absent: pronater drift, facial droop, speech deficit - Skin Skin exam: Present: dry, intact - Constitutional Vitals: Temp Pulse Resp BP Pulse Ox 98.9 F 72 18 116/69 95 06/18/18 07:31 06/18/18 07:31 06/18/18 07:31 06/18/18 07:31 06/18/18 07:31 Internal Medicine: Result - Labs CBC & Chem 7: 06/13/18 06:45 06/16/18 04:37 Consult Discharge Plan - Plan Referrals: Jose Francisco Trotter DO [Primary Care Provider] -
[2018-06-19] MEDS: Sucralfate 1 GM TABLET PO SCH ×2 (05:11→18:02)
[2018-06-19] MEDS: *HR* Heparin 5,000 UNIT/ML VIAL SQ SCH ×2 (05:11→18:02)
[2018-06-19] MEDS: Famotidine 20 MG TABLET PO SCH ×2 (05:11→18:02)
[2018-06-19 05:13] LABS: Basophils % 0.6 %; Eosinophils # 0.2 K/mcL (0.0-0.6); Eosinophils % 2.9 %; Hematocrit 30.5 % (35.3-44.9); Hemoglobin 9.9 g/dL (11.5-15.4); Immature Granulocytes % 0.7 % (0-4); Lymphocytes # 2.9 K/mcL (0.6-4.6); Lymphocytes % 40.4 %; Mean Corpuscular HGB Conc 32.5 g/dL (31.6-35.5); Mean Corpuscular Hemoglobin 29.6 pg (28.0-33.3); Mean Corpuscular Volume 91.3 fL (83.0-100.0); Mean Platelet Volume 10.3 fL (9.4-12.4); Monocytes # 0.5 K/mcL (0.0-1.3); Monocytes % 6.7 %; Neutrophils # 3.5 K/mcL (1.6-8.9); Platelet Count 226 K/mcL (140-400); Red Blood Count 3.34 M/mcL (3.82-4.97); Red Cell Distribution Width 17.6 % (11.5-14.5); Segmented Neutrophils % 48.7 %
[2018-06-19 05:28] LABS: BUN/Creatinine Ratio 16 (6-26); Blood Urea Nitrogen 13 mg/dL (8-23); Calcium 8.9 mg/dL (8.6-10.3); Carbon Dioxide 25 mEq/L (23-29); Chloride 107 mEq/L (98-107); Glucose 85 mg/dL (70-105); Osmolality,Calculated 283 (280-300); Potassium 4.9 mEq/L (3.5-5.1); Sodium 137 mEq/L (136-145); eGFR For Non-African Americans > 60 (> 60)
[2018-06-19] MEDS: Carbidopa/Levodopa ER 50/200 TABLET PO SCH ×2 (09:11→19:43)
[2018-06-19] MEDS: Acetaminophen 325 MG TABLET PO PRN (09:11)
[2018-06-19] MEDS: Gabapentin 300 MG CAPSULE PO SCH ×2 (09:11→19:44)
[2018-06-19] MEDS: Aspirin 81 MG TAB.CHEW PO SCH (09:11)
[2018-06-19] MEDS: amLODIPine 5 MG TABLET PO SCH (09:11)
[2018-06-19] MEDS: Megestrol Acetate 400 MG/10 ML UDC PO SCH (09:11)
--- NOTE | 2018-06-19 10:28 | Internal Med Progress Note ---
Addendum entered and electronically signed by Anika Hernandez 06/20/18 14:25: I have personally performed a face to face evaluation on this patient. I have reviewed and agree with the care plan. Original Note: Date of Encounter: 06/19/18 Time of Encounter: 10:26 - Assessment and plan (1) S/P laparoscopic cholecystectomy Current Visit: Yes Status: Acute Assessment and plan: No acute issues. Surgical incision appears healthy. Patient denies any discomforts. Patient participating in physical therapy. (2) Parkinsons disease Current Visit: Yes Status: Acute Assessment and plan: Patient continues with moderate generalized weakness. Physical therapy and progressing well. (3) Malnutrition Current Visit: Yes Status: Acute Assessment and plan: Patient with history of mild malnutrition. Nursing states that patient has had increased oral intake. Patient continues on Megace at this time. - Time Spent With Patient less than 15 minutes - Subjective Interval history: Patient appears relaxed and currently denies any discomforts and shortness of breath. Patient currently in chair at bedside and states that her physical therapy has been progressing well. - Constitutional Vitals: Temp Pulse Resp BP Pulse Ox 98.2 F 66 16 108/70 98 06/19/18 07:01 06/19/18 07:01 06/19/18 07:01 06/19/18 07:01 06/19/18 07:01 General appearance: Present: cooperative, A&O X 3, pleasant, no acute distress, answers questions appropriately - Head Head exam: Present: atraumatic, normocephalic - Eye Eye exam: Present: PERRL, conjuntiva pink, sclera anicteric Pupils: Present: PERRL - Neck Neck exam general surgery: Present: supple, trachea midline. Absent: lymphadenopathy - Respiratory Respiratory exam: Present: CTAB. Absent: accessory muscle use, rales, rhonchi, wheezes - Cardiovascular Cardiovascular exam: Present: RRR, +S1, +S2. Absent: diastolic murmur, gallop, rubs, systolic murmur - GI/Abdominal GI/Abdominal exam: Present: normal bowel sounds, soft, no peritoneal signs. Absent: distended, tenderness - Extremities Exam Extremities exam: Present: warm, radial pulses palpable and symmetrical. Absent: calf tenderness, cyanotic, pedal edema - Neurological Exam Neurological exam: Present: CN II-XII intact, oriented X3, no focal deficits. Absent: pronater drift, facial droop, speech deficit Additional comments: Patient continues with generalized weakness, likely secondary to Parkinson's - Skin Skin exam: Present: dry, intact Additional comments: Patient continues with what appears to be possibly a stage II decubitus on her sacrum. Dressing dry and intact. Patient being seen by wound care Internal Medicine: Result - Labs CBC & Chem 7: 06/19/18 04:50 06/19/18 04:50 Labs: Short CBC 06/19/18 Range/Units 04:50 WBC 7.2 (4.3-11.1) K/mcL Hgb 9.9 L (11.5-15.4) g/dL Hct 30.5 L (35.3-44.9) % Plt Count 226 (140-400) K/mcL Neutrophils # 3.5 (1.6-8.9) K/mcL BMP 06/19/18 04:50 Sodium 137 Potassium 4.9 Chloride 107 Carbon Dioxide 25 BUN 13 Creatinine 0.80 Glucose 85 Calcium 8.9 Consult Discharge Plan - Plan Referrals: Jose Francisco Trotter DO [Primary Care Provider] -
[2018-06-20] MEDS: Sucralfate 1 GM TABLET PO SCH ×2 (04:50→17:38)
[2018-06-20] MEDS: Famotidine 20 MG TABLET PO SCH ×2 (04:50→17:38)
[2018-06-20] MEDS: *HR* Heparin 5,000 UNIT/ML VIAL SQ SCH ×2 (04:50→17:38)
[2018-06-20] MEDS: Acetaminophen 325 MG TABLET PO PRN ×2 (06:47→18:29)
[2018-06-20] MEDS: Gabapentin 300 MG CAPSULE PO SCH ×2 (10:09→20:03)
[2018-06-20] MEDS: Aspirin 81 MG TAB.CHEW PO SCH (10:09)
[2018-06-20] MEDS: Carbidopa/Levodopa ER 50/200 TABLET PO SCH ×2 (10:09→20:02)
[2018-06-20] MEDS: Megestrol Acetate 400 MG/10 ML UDC PO SCH (10:10)
[2018-06-20] MEDS: amLODIPine 5 MG TABLET PO SCH (10:10)
--- NOTE | 2018-06-20 13:43 | Internal Med Progress Note ---
Date of Encounter: 06/20/18 Time of Encounter: 13:42 - Assessment and plan (1) S/P laparoscopic cholecystectomy Current Visit: Yes Status: Acute Assessment and plan: Incision healing. denies Abdominal pain. Follow up with surgeon as scheduled. (2) Dysarthria Current Visit: Yes Status: Acute (3) Parkinsons disease Current Visit: Yes Status: Acute Assessment and plan: Continue medication. Monitor neurological status. Assist with ADLs as necessary. Continue supportive care. - Time Spent With Patient less than 15 minutes - Subjective Interval history: Patient currently sitting up in wheelchair, denies pain. Denies any further complaints at this time. - Constitutional Vitals: Temp Pulse Resp BP Pulse Ox 97.9 F 62 16 114/64 96 06/20/18 07:14 06/20/18 07:14 06/20/18 07:14 06/20/18 07:14 06/20/18 07:14 General appearance: Present: cooperative, A&O X 3, pleasant, no acute distress, answers questions appropriately Exam: aPhasic, mild - Head Head exam: Present: atraumatic, normocephalic - Eye Eye exam: Present: PERRL, conjuntiva pink, sclera anicteric Pupils: Present: PERRL - Neck Neck exam general surgery: Present: supple, trachea midline. Absent: lymphadenopathy - Respiratory Respiratory exam: Present: CTAB. Absent: accessory muscle use, rales, rhonchi, wheezes - Cardiovascular Cardiovascular exam: Present: RRR, +S1, +S2. Absent: diastolic murmur, gallop, rubs, systolic murmur - GI/Abdominal GI/Abdominal exam: Present: normal bowel sounds, soft, no peritoneal signs. Absent: distended, tenderness - Extremities Exam Extremities exam: Present: warm, radial pulses palpable and symmetrical. Absent: calf tenderness, cyanotic, pedal edema - Neurological Exam Neurological exam: Present: CN II-XII intact, oriented X3, no focal deficits. Absent: pronater drift, facial droop, speech deficit - Skin Skin exam: Present: dry, intact Internal Medicine: Result - Labs CBC & Chem 7: 06/19/18 04:50 06/19/18 04:50 Consult Discharge Plan - Plan Referrals: Jose Francisco Trotter DO [Primary Care Provider] -
[2018-06-21] MEDS: Sucralfate 1 GM TABLET PO SCH ×2 (05:30→17:05)
[2018-06-21] MEDS: Famotidine 20 MG TABLET PO SCH ×2 (05:30→17:06)
[2018-06-21] MEDS: *HR* Heparin 5,000 UNIT/ML VIAL SQ SCH ×2 (05:30→17:06)
[2018-06-21] MEDS: Carbidopa/Levodopa ER 50/200 TABLET PO SCH ×2 (08:42→20:26)
[2018-06-21] MEDS: amLODIPine 5 MG TABLET PO SCH (08:42)
[2018-06-21] MEDS: Megestrol Acetate 400 MG/10 ML UDC PO SCH (08:42)
[2018-06-21] MEDS: Gabapentin 300 MG CAPSULE PO SCH ×2 (08:42→20:26)
[2018-06-21] MEDS: Aspirin 81 MG TAB.CHEW PO SCH (08:42)
--- NOTE | 2018-06-21 09:22 | Internal Med Progress Note ---
Addendum entered and electronically signed by Anika Hernandez 06/22/18 12:03: Original Note: Date of Encounter: 06/21/18 Time of Encounter: 09:19 - Assessment and plan (1) S/P laparoscopic cholecystectomy Current Visit: Yes Status: Acute Assessment and plan: Incision healing. denies Abdominal pain. Follow up with surgeon as scheduled. (2) Dysarthria Current Visit: Yes Status: Acute (3) Parkinsons disease Current Visit: Yes Status: Acute Assessment and plan: Progressive disease. Assist with ADLs. Follow up with neurologist as scheduled. - Time Spent With Patient less than 15 minutes - Subjective Interval history: Lying in bed, maintaining appetite and hydration. States bowels are moving as normal. Denies any pain. Planning for discharge to [facility] tomorrow. - Constitutional Vitals: Temp Pulse Resp BP Pulse Ox 99 F 79 17 106/64 97 06/21/18 08:30 06/21/18 08:30 06/21/18 08:30 06/21/18 08:30 06/21/18 08:30 General appearance: Present: cooperative, A&O X 3, pleasant, no acute distress, answers questions appropriately Exam: Mild dysarthria - Head Head exam: Present: atraumatic, normocephalic - Eye Eye exam: Present: PERRL, conjuntiva pink, sclera anicteric Pupils: Present: PERRL - Neck Neck exam general surgery: Present: supple, trachea midline. Absent: lymphadenopathy - Respiratory Respiratory exam: Present: CTAB. Absent: accessory muscle use, rales, rhonchi, wheezes - Cardiovascular Cardiovascular exam: Present: RRR, +S1, +S2. Absent: diastolic murmur, gallop, rubs, systolic murmur - GI/Abdominal GI/Abdominal exam: Present: normal bowel sounds, soft, no peritoneal signs. Absent: distended, tenderness - Extremities Exam Extremities exam: Present: warm, radial pulses palpable and symmetrical. Absent: calf tenderness, cyanotic, pedal edema - Neurological Exam Neurological exam: Present: CN II-XII intact, oriented X3, no focal deficits. Absent: pronater drift, facial droop, speech deficit - Skin Skin exam: Present: dry, intact Additional comments: Small coccyx wound. Being followed by wound team bruising improving to lower abdomen Internal Medicine: Result - Labs CBC & Chem 7: 06/19/18 04:50 06/19/18 04:50 Consult Discharge Plan - Plan Referrals: Jose Francisco Trotter DO [Primary Care Provider] -
[2018-06-21] MEDS: Acetaminophen 325 MG TABLET PO PRN (20:26)
[2018-06-22] MEDS: Sucralfate 1 GM TABLET PO SCH (06:01)
[2018-06-22] MEDS: *HR* Heparin 5,000 UNIT/ML VIAL SQ SCH (06:01)
[2018-06-22] MEDS: Famotidine 20 MG TABLET PO SCH (06:02)
--- NOTE | 2018-06-22 09:42 | Discharge Summary ---
Addendum entered and electronically signed by Anika Hernandez 06/22/18 12:03: I have personally performed a face to face evaluation on this patient. I have reviewed and agree with the care plan. Original Note: Date of Encounter: 06/22/18 Time of Encounter: 09:31 - Discharge Diagnosis (1) S/P laparoscopic cholecystectomy Priority: Primary Status: Acute Comments: No acute issues during her stay at this facility. Abdominal surgical wounds have healed well and appear healthy. No further complaints of pain. Patient has dissipated and physical therapy and progressed well. Patient is to continue her follow-up with her surgeon and PCP as scheduled (2) Parkinsons disease Priority: Secondary Status: Chronic Comments: No acute issues. Patient continues with generalized weakness requiring assistance during ambulation. Remains a risk fall. Patient has progressed well with physical therapy. We will continue her physical therapy while at [facility]. Patient's continue follow-up with her PCP and neurologist (3) Malnutrition Priority: Secondary Status: Acute Comments: Patient's oral intake has improved during her stay after starting on Megace. We will continue with current medications. Patient's weight has been stabilized Hospital course: Ms. Kline is a 78 year old female with a history of stroke 3 which causes dysarthria, hyperlipidemia, hypertension, depression who had long-standing nausea with emesis. Patient had about a month before her admission of intractable nausea and vomiting. She was found to have cholecystitis and cholelithiasis. She underwent laparoscopic cholecystectomy and had a uneventful recovery. However, she still has nausea with some inability to keep medications and other foods down. Patient was admitted to this facility for rehabilitation due to her generalized weakness secondary to her CVAs, Parkinson's and recovery from her surgery. Patient's nausea diminished over time and she was started on Megace due to poor oral intake. Patient's weight has stabilized and oral intake has improved after starting the medication. Patient has progressed with physical therapy but continues to be a fall risk with generalized weakness requiring ambulation with a walker and assistance. Patient is continue her scheduled follow-up with her surgeon and continue her follow-up with PCP. He will continue her physical therapy at [facility]. Discharge discussed with: patient Time spent discussing smoking cessation with patient: 3 to 10 minutes - Time Spent with Patient Total time spent providing and/or coordinating discharge services: Time spent: Less than 30 minutes - Discharge Medications Prescriptions: No Action Carbidopa/Levodopa ER 50/200 [Sinemet ER 50-200 Tab] 1 tab PO BID Sertraline [Zoloft] 150 mg PO DAILY Prevacid Atorvastatin [Lipitor] 40 mg PO DAILY Buspirone HCl [Buspar] 5 mg PO BID Aspirin Amlodipine Besylate 10 mg PO DAILY Bethanechol [Urecholine] 25 mg PO BID Gabapentin [Neurontin] 300 mg PO BID Heparin 5,000 unit SQ Q12HCO vial Bisacodyl [Dulcolax] 5 mg PO DAILY PRN tablet PRN Reason: Constipation Docusate [Colace] 100 mg PO BID capsule Sucralfate [Carafate] 1 gm PO QIDAC [facility] [place] Medications: Amlodipine Besylate 10 mg PO DAILY 05/18/17 [History] Aspirin 05/18/17 [History] Atorvastatin [Lipitor] 40 mg PO DAILY 05/18/17 [History] Buspirone HCl [Buspar] 5 mg PO BID 05/18/17 [History] Carbidopa/Levodopa ER 50/200 [Sinemet ER 50-200 Tab] 1 tab PO BID 05/18/17 [History] Prevacid 05/18/17 [History] Sertraline [Zoloft] 150 mg PO DAILY 05/18/17 [History] Bethanechol [Urecholine] 25 mg PO BID 05/30/18 [History] Gabapentin [Neurontin] 300 mg PO BID 05/30/18 [History] Bisacodyl [Dulcolax] 5 mg PO DAILY PRN tablet 06/02/18 [Rx] Docusate [Colace] 100 mg PO BID capsule 06/02/18 [Rx] Heparin 5,000 unit SQ Q12HCO vial 06/02/18 [Rx] Sucralfate [Carafate] 1 gm PO QIDAC udc 06/02/18 [Rx] Allergies/Adverse Reactions: Allergy/AdvReac Type Severity Reaction Status Date / Time Sulfa (Sulfonamide Allergy Hives Verified 05/28/18 13:39 Antibiotics) Date of admission: 06/02/18 16:35 Primary care physician: Jose Trotter DO Consults: 06/02/18 17:10 Consult to Occupational Therapy [CONS] Routine Comment: weakness Reason for Consult: weakness Does patient have active BEDREST order?: No Is patient medically & hemodynamically stable?: Yes Patient assessed for mobility or mobilized this visit?: No Consult to Physical Therapy [CONS] Routine Comment: weakness Reason for Consult: weakness Does patient have active BEDREST order?: No Is patient medically & hemodynamically stable?: Yes Patient assessed for mobility or mobilized this visit?: No Consult to Recreational Therapy [CONS] Routine Comment: Consult to Barkeeper [CONS] Routine Reason for SW Consult: potential for follow up care after d/c. d/c planning 06/02/18 17:15 Consult to Speech Therapy [CONS] Routine Comment: Evaluate, develop and implement POC Reason for Consult: dysarthria, diet consulation/swallow eval Call Completed: No 06/16/18 12:17 Consult to Wound Care [CONS] Routine Reason for Consult: unstagable pressure injury to coccyx. Call Completed: Yes Discharging clinician: Anika Hernandez - Constitutional Vitals: Temp Pulse Resp BP Pulse Ox 97.3 F L 77 16 117/68 97 06/21/18 19:35 06/21/18 19:35 06/21/18 19:35 06/21/18 19:35 06/21/18 19:35 General appearance: Present: cooperative, A&O X 3, pleasant, no acute distress, answers questions appropriately - Head Head exam: Present: atraumatic, normocephalic - Eye Eye exam: Present: PERRL, conjuntiva pink, sclera anicteric Pupils: Present: PERRL - Neck Neck exam general surgery: Present: supple, trachea midline. Absent: lymphadenopathy - Respiratory Respiratory exam: Present: CTAB. Absent: accessory muscle use, rales, rhonchi, wheezes - Cardiovascular Cardiovascular exam: Present: RRR, +S1, +S2. Absent: diastolic murmur, gallop, rubs, systolic murmur - GI/Abdominal GI/Abdominal exam: Present: normal bowel sounds, soft, no peritoneal signs. Absent: distended, tenderness Additional comments: Patient's surgical incisions for laparoscopic surgery have well-healed appear healthy - Extremities Exam Extremities exam: Present: warm, radial pulses palpable and symmetrical. Absent: calf tenderness, cyanotic, pedal edema - Neurological Exam Neurological exam: Present: CN II-XII intact, oriented X3, no focal deficits. Absent: pronater drift, facial droop, speech deficit Additional comments: She continues with generalized weakness secondary to Parkinson's. No focal deficits noted on exam - Skin Skin exam: Present: dry, intact - Patient Status Disposition: Home Health Service Condition: Good Functional capacity at discharge: uses cane/walker Overall status at discharge: patient is progressing back to baseline - Discharge Instructions Follow Up With: Jose Francisco Trotter DO [Primary Care Provider] - - Diet and Activity Activity: ambulate only with your walker, as per physical therapy Diet: advance to your usual diet, low fat, low cholesterol, low salt diet
[2018-06-22] MEDS: Megestrol Acetate 400 MG/10 ML UDC PO SCH (09:55)
[2018-06-22] MEDS: Aspirin 81 MG TAB.CHEW PO SCH (09:56)
[2018-06-22] MEDS: amLODIPine 5 MG TABLET PO SCH (09:56)
[2018-06-22] MEDS: Carbidopa/Levodopa ER 50/200 TABLET PO SCH (09:56)
[2018-06-22] MEDS: Acetaminophen 325 MG TABLET PO PRN (09:57)
[2018-06-22] MEDS: Gabapentin 300 MG CAPSULE PO SCH (09:57)
[2018-06-22 10:52] VITALS: BP 115/69
--- NOTE | 2018-06-22 11:00 | Physician Discharge Referral ---
Addendum entered and electronically signed by Anika Hernandez 06/22/18 12:02: I have personally performed a face to face evaluation on this patient. I have reviewed and agree with the care plan. Original Note: [facility] Referral Info Provider in Charge after Transfer: PCP Institutional Level of Care: Skilled - Diagnosis (1) S/P laparoscopic cholecystectomy Priority: Primary Status: Acute (2) Parkinsons disease Priority: Secondary Status: Chronic (3) Malnutrition Priority: Secondary Status: Acute Prognosis: Fair Aware of Diagnosis: Patient Aware of Prognosis: Patient - Transfer Medications Home Medications: Amlodipine Besylate 10 mg PO DAILY 05/18/17 [History] Aspirin 05/18/17 [History] Atorvastatin [Lipitor] 40 mg PO DAILY 05/18/17 [History] Buspirone HCl [Buspar] 5 mg PO BID 05/18/17 [History] Carbidopa/Levodopa ER 50/200 [Sinemet ER 50-200 Tab] 1 tab PO BID 05/18/17 [History] Prevacid 05/18/17 [History] Sertraline [Zoloft] 150 mg PO DAILY 05/18/17 [History] Bethanechol [Urecholine] 25 mg PO BID 05/30/18 [History] Gabapentin [Neurontin] 300 mg PO BID 05/30/18 [History] Bisacodyl [Dulcolax] 5 mg PO DAILY PRN tablet 06/02/18 [Rx] Docusate [Colace] 100 mg PO BID capsule 06/02/18 [Rx] Heparin 5,000 unit SQ Q12HCO vial 06/02/18 [Rx] Sucralfate [Carafate] 1 gm PO QIDAC udc 06/02/18 [Rx] Allergies/Adverse Reactions: Allergy/AdvReac Type Severity Reaction Status Date / Time Sulfa (Sulfonamide Allergy Hives Verified 05/28/18 13:39 Antibiotics) - Respiratory Orders Smoking Cessation: Smoking cessation has been advised. For more information, call the [place] Tobacco Quit Line at 0-624-HTBK-NOW. - Lab Orders Lab Orders: 2 Step Mantoux Test per State regulation, CBC, U/A, Olvin 17, CXR yearly - Ancillary Orders May use pressure relief devices daily prn, May go on SHAN w/family/respon green party w/meds at nurse discretion PRN, May consult with Dentist, Custom Decorating Consultant, Lactation Specialist PRN - Advance Directives Code Status: Full Code - Mobility Orders Ambulate - Rehabiliation Orders Rehab Potential: Fair Rehab Orders: ROM Exercises, Evaluation for Physical Therapy - Treatments Skin tear care topically daily PRN per policy, May check for fecal impaction rectally daily PRN, Fleet enema rectally every other day PRN cleansing purposes - Diet Orders Regular, No Added Salt (SHAYNA) CERTIFICATION: I certify that the transfer of the above named patient to an Extended Care Facility is necessary for the continuing treatment of the diagnosis listed. The above information is true and accurate reflection of patient's current condition. Confidential - Redisclosure prohibited without a patient's written consent.
== END 2018-06-22 14:40 | disposition home health service (06) | DRG 949 ==
LOC: INPGRE 16:35

== ENCOUNTER 2021-10-27 15:48 | Inpatient (IN) ==
[2021-10-27] MEDS: Acetaminophen 325 MG TABLET PO SCH (22:23)
[2021-10-27] MEDS: Cefdinir 300 MG CAPSULE PO SCH (22:23)
[2021-10-27] MEDS: *HR* Rivaroxaban 10 MG TABLET PO SCH (22:24)
[2021-10-27] MEDS: Carbidopa/Levodopa 25/100 TABLET PO SCH (22:24)
[2021-10-27] MEDS: Mirtazapine 15 MG TABLET PO SCH (22:24)
[2021-10-27] MEDS: Gabapentin 400 MG CAPSULE PO SCH (22:24)
[2021-10-28 04:36] LABS: Basophils % 0.4 %; Eosinophils # 0.2 K/mcL (0.0-0.6); Eosinophils % 1.9 %; Hematocrit 27.1 % (35.3-44.9); Hemoglobin 8.6 g/dL (11.5-15.4); Immature Granulocytes % 0.6 % (0-4); Lymphocytes # 4.2 K/mcL (0.6-4.6); Lymphocytes % 39.3 %; Mean Corpuscular HGB Conc 31.7 g/dL (31.6-35.5); Mean Corpuscular Hemoglobin 29.6 pg (28.0-33.3); Mean Corpuscular Volume 93.1 fL (83.0-100.0); Mean Platelet Volume 10.6 fL (9.4-12.4); Monocytes # 0.8 K/mcL (0.0-1.3); Monocytes % 7.4 %; Neutrophils # 5.4 K/mcL (1.6-8.9); Platelet Count 177 K/mcL (140-400); Red Blood Count 2.91 M/mcL (3.82-4.97); Red Cell Distribution Width 13.2 % (11.5-14.5); Segmented Neutrophils % 50.4 %; White Blood Count 10.6 K/mcL (4.3-11.1)
[2021-10-28 04:50] LABS: BUN/Creatinine Ratio 42 (6-26); Blood Urea Nitrogen 32 mg/dL (8-23); Calcium 10.1 mg/dL (8.6-10.3); Carbon Dioxide 33 mEq/L (23-29); Chloride 104 mEq/L (98-107); Glucose 102 mg/dL (70-105); Osmolality,Calculated 297 (280-300); Potassium 4.4 mEq/L (3.5-5.1); Sodium 140 mEq/L (136-145); eGFR For African Americans > 60 (> 60); eGFR For Non-African Americans > 60 (> 60)
[2021-10-28] MEDS: Cefdinir 300 MG CAPSULE PO SCH ×2 (09:17→20:33)
[2021-10-28] MEDS: Aspirin Enteric Coated 81 MG Tablet PO SCH (09:17)
[2021-10-28] MEDS: amLODIPine 5 MG TABLET PO SCH (09:17)
[2021-10-28] MEDS: Multivit/Ca/Min/Fe/FA 1 TAB TABLET PO SCH (09:17)
[2021-10-28] MEDS: *HR* OxyCODONE Immed Rel 5 MG TABLET PO PRN ×3 (09:17→20:30)
[2021-10-28] MEDS: Ascorbic Acid 500 MG TABLET PO SCH ×2 (09:17→16:11)
[2021-10-28] MEDS: Carbidopa/Levodopa 25/100 TABLET PO SCH ×3 (09:26→20:45)
[2021-10-28] MEDS: Acetaminophen 325 MG TABLET PO SCH ×3 (09:26→20:47)
[2021-10-28] MEDS: Gabapentin 400 MG CAPSULE PO SCH ×2 (09:26→20:46)
[2021-10-28] MEDS: *HR* Rivaroxaban 10 MG TABLET PO SCH (20:30)
[2021-10-28] MEDS: Mirtazapine 15 MG TABLET PO SCH (20:34)
[2021-10-28] MEDS: Nystatin POWDER 30 GM BOTTLE TP SCH (20:47)
[2021-10-29] MEDS: *HR* OxyCODONE Immed Rel 5 MG TABLET PO PRN (05:18)
[2021-10-29 06:33] LABS: Basophils # 0.1 K/mcL (0.0-0.2); Basophils % 0.5 %; Eosinophils # 0.2 K/mcL (0.0-0.6); Eosinophils % 1.5 %; Hematocrit 28.3 % (35.3-44.9); Hemoglobin 8.9 g/dL (11.5-15.4); Lymphocytes # 4.1 K/mcL (0.6-4.6); Lymphocytes % 35.6 %; Mean Corpuscular HGB Conc 31.4 g/dL (31.6-35.5); Mean Corpuscular Hemoglobin 29.1 pg (28.0-33.3); Mean Corpuscular Volume 92.5 fL (83.0-100.0); Mean Platelet Volume 10.5 fL (9.4-12.4); Monocytes # 0.9 K/mcL (0.0-1.3); Monocytes % 7.5 %; Neutrophils # 6.3 K/mcL (1.6-8.9); Platelet Count 225 K/mcL (140-400); Red Blood Count 3.06 M/mcL (3.82-4.97); Red Cell Distribution Width 13.2 % (11.5-14.5); Segmented Neutrophils % 53.9 %; White Blood Count 11.6 K/mcL (4.3-11.1)
[2021-10-29 08:03] LABS: BUN/Creatinine Ratio 30 (6-26); Blood Urea Nitrogen 27 mg/dL (8-23); Calcium 9.9 mg/dL (8.6-10.3); Carbon Dioxide 31 mEq/L (23-29); Chloride 102 mEq/L (98-107); Glucose 110 mg/dL (70-105); Osmolality,Calculated 294 (280-300); Potassium 4.4 mEq/L (3.5-5.1); Sodium 139 mEq/L (136-145); eGFR For African Americans > 60 (> 60); eGFR For Non-African Americans > 60 (> 60)
[2021-10-29] MEDS: Multivit/Ca/Min/Fe/FA 1 TAB TABLET PO SCH (09:07)
[2021-10-29] MEDS: amLODIPine 5 MG TABLET PO SCH (09:07)
[2021-10-29] MEDS: Cefdinir 300 MG CAPSULE PO SCH ×2 (09:07→20:48)
[2021-10-29] MEDS: Ascorbic Acid 500 MG TABLET PO SCH ×2 (09:07→16:36)
[2021-10-29] MEDS: Aspirin Enteric Coated 81 MG Tablet PO SCH (09:07)
[2021-10-29] MEDS: Carbidopa/Levodopa 25/100 TABLET PO SCH ×3 (09:11→20:48)
[2021-10-29] MEDS: Acetaminophen 325 MG TABLET PO SCH ×3 (09:11→20:51)
[2021-10-29] MEDS: Gabapentin 400 MG CAPSULE PO SCH ×2 (09:11→20:48)
[2021-10-29] MEDS: Nystatin POWDER 30 GM BOTTLE TP SCH ×3 (09:14→20:52)
[2021-10-29] MEDS: Mirtazapine 15 MG TABLET PO SCH (20:47)
[2021-10-29] MEDS: *HR* Rivaroxaban 10 MG TABLET PO SCH (20:48)
[2021-10-30] MEDS: Gabapentin 400 MG CAPSULE PO SCH ×2 (09:38→19:39)
[2021-10-30] MEDS: Cefdinir 300 MG CAPSULE PO SCH ×2 (09:38→19:41)
[2021-10-30] MEDS: Carbidopa/Levodopa 25/100 TABLET PO SCH ×3 (09:38→19:43)
[2021-10-30] MEDS: Multivit/Ca/Min/Fe/FA 1 TAB TABLET PO SCH (09:38)
[2021-10-30] MEDS: Ascorbic Acid 500 MG TABLET PO SCH ×2 (09:39→16:55)
[2021-10-30] MEDS: Aspirin Enteric Coated 81 MG Tablet PO SCH (09:39)
[2021-10-30] MEDS: Acetaminophen 325 MG TABLET PO SCH ×2 (09:39→12:46)
[2021-10-30] MEDS: amLODIPine 5 MG TABLET PO SCH (09:39)
[2021-10-30] MEDS: Nystatin POWDER 30 GM BOTTLE TP SCH ×2 (09:39→12:47)
[2021-10-30] MEDS: *HR* OxyCODONE Immed Rel 5 MG TABLET PO PRN ×2 (10:54→16:55)
[2021-10-30] MEDS: *HR* Rivaroxaban 10 MG TABLET PO SCH (19:40)
[2021-10-30] MEDS: Mirtazapine 15 MG TABLET PO SCH (19:45)
[2021-10-31 05:15] LABS: Basophils % 0.4 %; Eosinophils # 0.2 K/mcL (0.0-0.6); Eosinophils % 1.4 %; Hematocrit 25.9 % (35.3-44.9); Hemoglobin 8.3 g/dL (11.5-15.4); Immature Granulocytes % 1.4 % (0-4); Lymphocytes % 36.7 %; Mean Corpuscular Hemoglobin 29.1 pg (28.0-33.3); Mean Corpuscular Volume 90.9 fL (83.0-100.0); Mean Platelet Volume 10.4 fL (9.4-12.4); Monocytes # 0.9 K/mcL (0.0-1.3); Monocytes % 8.5 %; Neutrophils # 5.6 K/mcL (1.6-8.9); Nucleated Red Blood Cells 0.2 /100 WBC (0); Platelet Count 256 K/mcL (140-400); Red Blood Count 2.85 M/mcL (3.82-4.97); Segmented Neutrophils % 51.6 %; White Blood Count 10.8 K/mcL (4.3-11.1)
[2021-10-31] MEDS: Nystatin POWDER 30 GM BOTTLE TP SCH ×4 (08:47→22:24)
[2021-10-31] MEDS: Multivit/Ca/Min/Fe/FA 1 TAB TABLET PO SCH (08:48)
[2021-10-31] MEDS: *HR* OxyCODONE Immed Rel 5 MG TABLET PO PRN ×3 (08:48→22:13)
[2021-10-31] MEDS: Cefdinir 300 MG CAPSULE PO SCH (08:48)
[2021-10-31] MEDS: Aspirin Enteric Coated 81 MG Tablet PO SCH (08:49)
[2021-10-31] MEDS: amLODIPine 5 MG TABLET PO SCH (08:49)
[2021-10-31] MEDS: Ascorbic Acid 500 MG TABLET PO SCH ×2 (08:49→16:21)
[2021-10-31] MEDS: Carbidopa/Levodopa 25/100 TABLET PO SCH ×3 (08:54→22:16)
[2021-10-31] MEDS: Gabapentin 400 MG CAPSULE PO SCH ×2 (08:54→22:23)
[2021-10-31] MEDS: Mirtazapine 15 MG TABLET PO SCH (22:12)
[2021-10-31] MEDS: *HR* Rivaroxaban 10 MG TABLET PO SCH (22:12)
[2021-11-01] MEDS: Ascorbic Acid 500 MG TABLET PO SCH ×2 (09:04→16:30)
[2021-11-01] MEDS: Gabapentin 400 MG CAPSULE PO SCH ×2 (09:04→21:32)
[2021-11-01] MEDS: Carbidopa/Levodopa 25/100 TABLET PO SCH ×3 (09:04→21:38)
[2021-11-01] MEDS: amLODIPine 5 MG TABLET PO SCH (09:05)
[2021-11-01] MEDS: Multivit/Ca/Min/Fe/FA 1 TAB TABLET PO SCH (09:06)
[2021-11-01] MEDS: *HR* OxyCODONE Immed Rel 5 MG TABLET PO PRN ×3 (09:06→21:29)
[2021-11-01] MEDS: Nystatin POWDER 30 GM BOTTLE TP SCH ×3 (09:06→21:32)
[2021-11-01] MEDS: Aspirin Enteric Coated 81 MG Tablet PO SCH (09:10)
[2021-11-01] MEDS: *HR* Rivaroxaban 10 MG TABLET PO SCH (21:31)
[2021-11-01] MEDS: Mirtazapine 15 MG TABLET PO SCH (21:31)
[2021-11-02] MEDS: Ascorbic Acid 500 MG TABLET PO SCH ×2 (09:28→16:23)
[2021-11-02] MEDS: amLODIPine 5 MG TABLET PO SCH (09:29)
[2021-11-02] MEDS: Aspirin Enteric Coated 81 MG Tablet PO SCH (09:29)
[2021-11-02] MEDS: Gabapentin 400 MG CAPSULE PO SCH ×2 (09:30→21:51)
[2021-11-02] MEDS: Carbidopa/Levodopa 25/100 TABLET PO SCH ×3 (09:31→21:54)
[2021-11-02] MEDS: Multivit/Ca/Min/Fe/FA 1 TAB TABLET PO SCH (09:31)
[2021-11-02] MEDS: Nystatin POWDER 30 GM BOTTLE TP SCH ×3 (09:32→21:56)
[2021-11-02] MEDS: *HR* OxyCODONE Immed Rel 5 MG TABLET PO PRN ×2 (10:31→21:54)
[2021-11-02] MEDS: *HR* Rivaroxaban 10 MG TABLET PO SCH (21:55)
[2021-11-02] MEDS: Mirtazapine 15 MG TABLET PO SCH (21:56)
[2021-11-03] MEDS: Gabapentin 400 MG CAPSULE PO SCH ×2 (08:59→20:20)
[2021-11-03] MEDS: Ascorbic Acid 500 MG TABLET PO SCH ×2 (08:59→17:02)
[2021-11-03] MEDS: Aspirin Enteric Coated 81 MG Tablet PO SCH (08:59)
[2021-11-03] MEDS: Carbidopa/Levodopa 25/100 TABLET PO SCH ×3 (09:00→21:46)
[2021-11-03] MEDS: amLODIPine 5 MG TABLET PO SCH (09:00)
[2021-11-03] MEDS: Multivit/Ca/Min/Fe/FA 1 TAB TABLET PO SCH (09:00)
[2021-11-03] MEDS: Nystatin POWDER 30 GM BOTTLE TP SCH ×3 (09:08→20:20)
[2021-11-03] MEDS: *HR* Rivaroxaban 10 MG TABLET PO SCH (20:19)
[2021-11-03] MEDS: *HR* OxyCODONE Immed Rel 5 MG TABLET PO PRN (20:19)
[2021-11-03] MEDS: Mirtazapine 15 MG TABLET PO SCH (20:19)
[2021-11-04 04:44] LABS: Basophils # 0.1 K/mcL (0.0-0.2); Basophils % 0.5 %; Eosinophils # 0.2 K/mcL (0.0-0.6); Eosinophils % 1.3 %; Hematocrit 25.4 % (35.3-44.9); Hemoglobin 8.1 g/dL (11.5-15.4); Lymphocytes % 34.5 %; Mean Corpuscular HGB Conc 31.9 g/dL (31.6-35.5); Mean Corpuscular Hemoglobin 29.3 pg (28.0-33.3); Mean Platelet Volume 9.7 fL (9.4-12.4); Monocytes # 0.9 K/mcL (0.0-1.3); Monocytes % 7.4 %; Nucleated Red Blood Cells 0.2 /100 WBC (0); Platelet Count 376 K/mcL (140-400); Red Blood Count 2.76 M/mcL (3.82-4.97); Red Cell Distribution Width 13.7 % (11.5-14.5); Segmented Neutrophils % 55.3 %; White Blood Count 11.5 K/mcL (4.3-11.1)
[2021-11-04 04:48] LABS: Neutrophils # 6.4 K/mcL (1.6-8.9)
[2021-11-04 04:58] LABS: BUN/Creatinine Ratio 23 (6-26); Blood Urea Nitrogen 17 mg/dL (8-23); Carbon Dioxide 34 mEq/L (23-29); Chloride 104 mEq/L (98-107); Glucose 99 mg/dL (70-105); Osmolality,Calculated 294 (280-300); Potassium 4.7 mEq/L (3.5-5.1); Sodium 141 mEq/L (136-145); eGFR For African Americans > 60 (> 60); eGFR For Non-African Americans > 60 (> 60)
[2021-11-04] MEDS: Ascorbic Acid 500 MG TABLET PO SCH ×2 (08:37→16:24)
[2021-11-04] MEDS: Nystatin POWDER 30 GM BOTTLE TP SCH ×3 (08:37→22:51)
[2021-11-04] MEDS: Gabapentin 400 MG CAPSULE PO SCH ×2 (08:37→22:41)
[2021-11-04] MEDS: Aspirin Enteric Coated 81 MG Tablet PO SCH (08:37)
[2021-11-04] MEDS: Carbidopa/Levodopa 25/100 TABLET PO SCH ×3 (08:37→22:50)
[2021-11-04] MEDS: Multivit/Ca/Min/Fe/FA 1 TAB TABLET PO SCH (08:37)
[2021-11-04] MEDS: amLODIPine 5 MG TABLET PO SCH (08:37)
[2021-11-04] MEDS: Mirtazapine 15 MG TABLET PO SCH (22:40)
[2021-11-04] MEDS: *HR* OxyCODONE Immed Rel 5 MG TABLET PO PRN (22:41)
[2021-11-04] MEDS: *HR* Rivaroxaban 10 MG TABLET PO SCH (22:41)
[2021-11-05] MEDS: amLODIPine 5 MG TABLET PO SCH (09:04)
[2021-11-05] MEDS: Aspirin Enteric Coated 81 MG Tablet PO SCH (09:04)
[2021-11-05] MEDS: Gabapentin 400 MG CAPSULE PO SCH ×2 (09:04→21:30)
[2021-11-05] MEDS: Multivit/Ca/Min/Fe/FA 1 TAB TABLET PO SCH (09:04)
[2021-11-05] MEDS: Ascorbic Acid 500 MG TABLET PO SCH ×2 (09:04→19:00)
[2021-11-05] MEDS: Nystatin POWDER 30 GM BOTTLE TP SCH ×3 (09:05→21:31)
[2021-11-05] MEDS: Carbidopa/Levodopa 25/100 TABLET PO SCH ×3 (09:10→21:30)
[2021-11-05] MEDS: *HR* OxyCODONE Immed Rel 5 MG TABLET PO PRN ×3 (10:36→21:30)
[2021-11-05] MEDS: Acetaminophen 325 MG TABLET PO PRN (13:25)
[2021-11-05] MEDS: *HR* Rivaroxaban 10 MG TABLET PO SCH (21:29)
[2021-11-05] MEDS: Mirtazapine 15 MG TABLET PO SCH (21:30)
[2021-11-06 06:29] LABS: Hematocrit 25.7 % (35.3-44.9); Hemoglobin 8.1 g/dL (11.5-15.4); Mean Corpuscular HGB Conc 31.5 g/dL (31.6-35.5); Mean Corpuscular Hemoglobin 29.7 pg (28.0-33.3); Mean Corpuscular Volume 94.1 fL (83.0-100.0); Mean Platelet Volume 9.7 fL (9.4-12.4); Platelet Count 378 K/mcL (140-400); Red Blood Count 2.73 M/mcL (3.82-4.97); Red Cell Distribution Width 14.3 % (11.5-14.5); White Blood Count 11.7 K/mcL (4.3-11.1)
[2021-11-06 06:39] LABS: BUN/Creatinine Ratio 22 (6-26); Blood Urea Nitrogen 19 mg/dL (8-23); Calcium 9.8 mg/dL (8.6-10.3); Carbon Dioxide 33 mEq/L (23-29); Chloride 104 mEq/L (98-107); Glucose 90 mg/dL (70-105); Magnesium 2.2 mg/dL (1.6-2.6); Osmolality,Calculated 294 (280-300); Potassium 4.4 mEq/L (3.5-5.1); Sodium 141 mEq/L (136-145); eGFR For African Americans > 60 (> 60); eGFR For Non-African Americans > 60 (> 60)
[2021-11-06] MEDS: Multivit/Ca/Min/Fe/FA 1 TAB TABLET PO SCH (08:12)
[2021-11-06] MEDS: Aspirin Enteric Coated 81 MG Tablet PO SCH (08:12)
[2021-11-06] MEDS: Ascorbic Acid 500 MG TABLET PO SCH ×2 (08:12→16:14)
[2021-11-06] MEDS: Gabapentin 400 MG CAPSULE PO SCH ×2 (08:12→21:26)
[2021-11-06] MEDS: amLODIPine 5 MG TABLET PO SCH (08:13)
[2021-11-06] MEDS: Carbidopa/Levodopa 25/100 TABLET PO SCH ×2 (08:13→12:12)
[2021-11-06] MEDS: *HR* OxyCODONE Immed Rel 5 MG TABLET PO PRN (08:13)
[2021-11-06] MEDS: Nystatin POWDER 30 GM BOTTLE TP SCH ×3 (08:13→21:27)
[2021-11-06] MEDS: *HR* Rivaroxaban 10 MG TABLET PO SCH (21:25)
[2021-11-06] MEDS: Mirtazapine 15 MG TABLET PO SCH (21:25)
[2021-11-07] MEDS: Carbidopa/Levodopa 25/100 TABLET PO SCH ×4 (05:12→19:52)
[2021-11-07] MEDS: Gabapentin 400 MG CAPSULE PO SCH ×2 (08:23→19:44)
[2021-11-07] MEDS: Nystatin POWDER 30 GM BOTTLE TP SCH ×3 (08:23→19:45)
[2021-11-07] MEDS: Aspirin Enteric Coated 81 MG Tablet PO SCH (08:23)
[2021-11-07] MEDS: Multivit/Ca/Min/Fe/FA 1 TAB TABLET PO SCH (08:23)
[2021-11-07] MEDS: Ascorbic Acid 500 MG TABLET PO SCH ×2 (08:23→15:53)
[2021-11-07] MEDS: amLODIPine 5 MG TABLET PO SCH (08:24)
[2021-11-07] MEDS: *HR* Rivaroxaban 10 MG TABLET PO SCH (19:43)
[2021-11-07] MEDS: Mirtazapine 15 MG TABLET PO SCH (19:44)
[2021-11-07] MEDS: *HR* OxyCODONE Immed Rel 5 MG TABLET PO PRN (19:56)
[2021-11-08] MEDS: Nystatin POWDER 30 GM BOTTLE TP SCH ×3 (08:30→21:13)
[2021-11-08] MEDS: Aspirin Enteric Coated 81 MG Tablet PO SCH (08:30)
[2021-11-08] MEDS: Multivit/Ca/Min/Fe/FA 1 TAB TABLET PO SCH (08:30)
[2021-11-08] MEDS: Gabapentin 400 MG CAPSULE PO SCH ×2 (08:31→21:12)
[2021-11-08] MEDS: amLODIPine 5 MG TABLET PO SCH (08:31)
[2021-11-08] MEDS: Ascorbic Acid 500 MG TABLET PO SCH ×2 (08:31→15:44)
[2021-11-08] MEDS: Carbidopa/Levodopa 25/100 TABLET PO SCH ×3 (08:37→21:15)
[2021-11-08] MEDS: Mirtazapine 15 MG TABLET PO SCH (21:12)
[2021-11-08] MEDS: *HR* Rivaroxaban 10 MG TABLET PO SCH (21:12)
[2021-11-08] MEDS: *HR* OxyCODONE Immed Rel 5 MG TABLET PO PRN (21:12)
[2021-11-09 04:48] LABS: Hematocrit 27.4 % (35.3-44.9); Hemoglobin 8.4 g/dL (11.5-15.4); Mean Corpuscular HGB Conc 30.7 g/dL (31.6-35.5); Mean Corpuscular Hemoglobin 28.9 pg (28.0-33.3); Mean Corpuscular Volume 94.2 fL (83.0-100.0); Mean Platelet Volume 9.6 fL (9.4-12.4); Platelet Count 374 K/mcL (140-400); Red Blood Count 2.91 M/mcL (3.82-4.97); White Blood Count 8.9 K/mcL (4.3-11.1)
[2021-11-09 05:01] LABS: BUN/Creatinine Ratio 18 (6-26); Blood Urea Nitrogen 13 mg/dL (8-23); Calcium 9.8 mg/dL (8.6-10.3); Carbon Dioxide 32 mEq/L (23-29); Chloride 105 mEq/L (98-107); Glucose 90 mg/dL (70-105); Magnesium 2.1 mg/dL (1.6-2.6); Osmolality,Calculated 292 (280-300); Potassium 4.5 mEq/L (3.5-5.1); Sodium 141 mEq/L (136-145); eGFR For African Americans > 60 (> 60); eGFR For Non-African Americans > 60 (> 60)
[2021-11-09] MEDS: Gabapentin 400 MG CAPSULE PO SCH ×2 (08:22→20:51)
[2021-11-09] MEDS: amLODIPine 5 MG TABLET PO SCH (08:22)
[2021-11-09] MEDS: Aspirin Enteric Coated 81 MG Tablet PO SCH (08:22)
[2021-11-09] MEDS: Carbidopa/Levodopa 25/100 TABLET PO SCH ×3 (08:22→20:52)
[2021-11-09] MEDS: Ascorbic Acid 500 MG TABLET PO SCH ×2 (08:22→16:31)
[2021-11-09] MEDS: Multivit/Ca/Min/Fe/FA 1 TAB TABLET PO SCH (08:22)
[2021-11-09] MEDS: Nystatin POWDER 30 GM BOTTLE TP SCH ×3 (08:24→20:53)
[2021-11-09] MEDS: Acetaminophen 325 MG TABLET PO PRN ×2 (09:19→20:51)
[2021-11-09 16:00] LABS: Bilirubin,Urine Negative (Negative); Blood,Urine Trace-intact (Negative); Clarity,Urine Cloudy (Clear); Color,Urine Yellow (Yellow); Glucose,Urine (UA) Normal (Normal); Ketones,Urine Negative (Negative); Leukocyte Esterase,Urine Moderate (Negative); Nitrite,Urine Positive (Negative); Protein,Urine Negative (Neg-Trace)
[2021-11-09 16:11] LABS: Bacteria,Urine Many per hpf (None-Few); WBC,Urine 30-50 per hpf (0-3)
[2021-11-09] MEDS: Mirtazapine 15 MG TABLET PO SCH (20:51)
[2021-11-09] MEDS: cephALEXin 250 MG CAPSULE PO SCH (20:52)
[2021-11-09] MEDS: *HR* Rivaroxaban 10 MG TABLET PO SCH (20:52)
[2021-11-10] MEDS: Aspirin Enteric Coated 81 MG Tablet PO SCH (09:08)
[2021-11-10] MEDS: cephALEXin 250 MG CAPSULE PO SCH ×3 (09:08→20:41)
[2021-11-10] MEDS: Ascorbic Acid 500 MG TABLET PO SCH ×2 (09:08→15:25)
[2021-11-10] MEDS: Gabapentin 400 MG CAPSULE PO SCH ×2 (09:08→20:41)
[2021-11-10] MEDS: Multivit/Ca/Min/Fe/FA 1 TAB TABLET PO SCH (09:09)
[2021-11-10] MEDS: amLODIPine 5 MG TABLET PO SCH (09:09)
[2021-11-10] MEDS: Carbidopa/Levodopa 25/100 TABLET PO SCH ×3 (09:14→20:42)
[2021-11-10] MEDS: Nystatin POWDER 30 GM BOTTLE TP SCH ×3 (09:15→20:42)
[2021-11-10] MEDS: *HR* Rivaroxaban 10 MG TABLET PO SCH (20:40)
[2021-11-10] MEDS: Mirtazapine 15 MG TABLET PO SCH (20:40)
[2021-11-10] MEDS: Acetaminophen 325 MG TABLET PO PRN (20:40)
[2021-11-11 05:01] LABS: Basophils % 0.5 %; Eosinophils # 0.2 K/mcL (0.0-0.6); Eosinophils % 2.6 %; Hematocrit 27.4 % (35.3-44.9); Hemoglobin 8.4 g/dL (11.5-15.4); Immature Granulocytes % 0.4 % (0-4); Lymphocytes # 2.8 K/mcL (0.6-4.6); Lymphocytes % 33.5 %; Mean Corpuscular HGB Conc 30.7 g/dL (31.6-35.5); Mean Corpuscular Hemoglobin 28.5 pg (28.0-33.3); Mean Corpuscular Volume 92.9 fL (83.0-100.0); Mean Platelet Volume 9.9 fL (9.4-12.4); Monocytes # 0.7 K/mcL (0.0-1.3); Monocytes % 8.3 %; Neutrophils # 4.7 K/mcL (1.6-8.9); Platelet Count 330 K/mcL (140-400); Red Blood Count 2.95 M/mcL (3.82-4.97); Segmented Neutrophils % 54.7 %; White Blood Count 8.5 K/mcL (4.3-11.1)
[2021-11-11 05:14] LABS: BUN/Creatinine Ratio 23 (6-26); Blood Urea Nitrogen 18 mg/dL (8-23); Calcium 9.8 mg/dL (8.6-10.3); Carbon Dioxide 30 mEq/L (23-29); Chloride 107 mEq/L (98-107); Glucose 92 mg/dL (70-105); Osmolality,Calculated 298 (280-300); Potassium 4.3 mEq/L (3.5-5.1); Sodium 143 mEq/L (136-145); eGFR For African Americans > 60 (> 60); eGFR For Non-African Americans > 60 (> 60)
[2021-11-11] MEDS: Acetaminophen 325 MG TABLET PO PRN ×2 (08:58→21:33)
[2021-11-11] MEDS: Gabapentin 400 MG CAPSULE PO SCH ×2 (08:58→21:32)
[2021-11-11] MEDS: amLODIPine 5 MG TABLET PO SCH (08:58)
[2021-11-11] MEDS: Multivit/Ca/Min/Fe/FA 1 TAB TABLET PO SCH (08:59)
[2021-11-11] MEDS: Aspirin Enteric Coated 81 MG Tablet PO SCH (08:59)
[2021-11-11] MEDS: cephALEXin 250 MG CAPSULE PO SCH ×3 (08:59→21:33)
[2021-11-11] MEDS: Ascorbic Acid 500 MG TABLET PO SCH ×2 (08:59→16:24)
[2021-11-11] MEDS: Nystatin POWDER 30 GM BOTTLE TP SCH ×3 (09:00→21:34)
[2021-11-11] MEDS: Carbidopa/Levodopa 25/100 TABLET PO SCH ×3 (09:09→21:33)
[2021-11-11] MEDS: Mirtazapine 15 MG TABLET PO SCH (21:33)
[2021-11-11] MEDS: *HR* Rivaroxaban 10 MG TABLET PO SCH (21:33)
[2021-11-12] MEDS: Gabapentin 400 MG CAPSULE PO SCH ×2 (09:22→20:49)
[2021-11-12] MEDS: cephALEXin 250 MG CAPSULE PO SCH ×3 (09:22→20:50)
[2021-11-12] MEDS: Acetaminophen 325 MG TABLET PO PRN (09:22)
[2021-11-12] MEDS: Ascorbic Acid 500 MG TABLET PO SCH ×2 (09:22→15:05)
[2021-11-12] MEDS: Aspirin Enteric Coated 81 MG Tablet PO SCH (09:22)
[2021-11-12] MEDS: Multivit/Ca/Min/Fe/FA 1 TAB TABLET PO SCH (09:23)
[2021-11-12] MEDS: Nystatin POWDER 30 GM BOTTLE TP SCH ×3 (09:23→20:51)
[2021-11-12] MEDS: amLODIPine 5 MG TABLET PO SCH (09:23)
[2021-11-12] MEDS: Carbidopa/Levodopa 25/100 TABLET PO SCH ×3 (09:28→20:50)
[2021-11-12] MEDS: *HR* Rivaroxaban 10 MG TABLET PO SCH (20:49)
[2021-11-12] MEDS: Mirtazapine 15 MG TABLET PO SCH (20:50)
[2021-11-12] MEDS: *HR* OxyCODONE Immed Rel 5 MG TABLET PO PRN (20:50)
[2021-11-13] MEDS: amLODIPine 5 MG TABLET PO SCH (08:12)
[2021-11-13] MEDS: Acetaminophen 325 MG TABLET PO PRN (08:12)
[2021-11-13] MEDS: Aspirin Enteric Coated 81 MG Tablet PO SCH (08:12)
[2021-11-13] MEDS: Multivit/Ca/Min/Fe/FA 1 TAB TABLET PO SCH (08:12)
[2021-11-13] MEDS: Gabapentin 400 MG CAPSULE PO SCH ×2 (08:12→21:11)
[2021-11-13] MEDS: Nystatin POWDER 30 GM BOTTLE TP SCH ×3 (08:13→21:11)
[2021-11-13] MEDS: cephALEXin 250 MG CAPSULE PO SCH ×3 (08:13→21:10)
[2021-11-13] MEDS: Ascorbic Acid 500 MG TABLET PO SCH ×2 (08:13→16:17)
[2021-11-13] MEDS: Carbidopa/Levodopa 25/100 TABLET PO SCH ×3 (08:26→21:13)
[2021-11-13] MEDS: *HR* OxyCODONE Immed Rel 5 MG TABLET PO PRN (21:10)
[2021-11-13] MEDS: Mirtazapine 15 MG TABLET PO SCH (21:11)
[2021-11-13] MEDS: *HR* Rivaroxaban 10 MG TABLET PO SCH (21:11)
[2021-11-14] MEDS: Multivit/Ca/Min/Fe/FA 1 TAB TABLET PO SCH (09:17)
[2021-11-14] MEDS: Aspirin Enteric Coated 81 MG Tablet PO SCH (09:17)
[2021-11-14] MEDS: cephALEXin 250 MG CAPSULE PO SCH ×3 (09:17→20:41)
[2021-11-14] MEDS: Gabapentin 400 MG CAPSULE PO SCH ×2 (09:17→20:41)
[2021-11-14] MEDS: amLODIPine 5 MG TABLET PO SCH (09:18)
[2021-11-14] MEDS: Ascorbic Acid 500 MG TABLET PO SCH ×2 (09:18→17:07)
[2021-11-14] MEDS: Carbidopa/Levodopa 25/100 TABLET PO SCH ×3 (09:19→20:42)
[2021-11-14] MEDS: Nystatin POWDER 30 GM BOTTLE TP SCH ×3 (09:19→20:42)
[2021-11-14] MEDS: *HR* OxyCODONE Immed Rel 5 MG TABLET PO PRN ×2 (11:09→20:41)
[2021-11-14] MEDS: Acetaminophen 325 MG TABLET PO PRN (17:07)
[2021-11-14] MEDS: Mirtazapine 15 MG TABLET PO SCH (20:41)
[2021-11-14] MEDS: *HR* Rivaroxaban 10 MG TABLET PO SCH (20:42)
[2021-11-15 04:39] LABS: Hemoglobin 8.6 g/dL (11.5-15.4); Mean Corpuscular HGB Conc 30.7 g/dL (31.6-35.5); Mean Corpuscular Hemoglobin 29.1 pg (28.0-33.3); Mean Corpuscular Volume 94.6 fL (83.0-100.0); Mean Platelet Volume 9.9 fL (9.4-12.4); Platelet Count 274 K/mcL (140-400); Red Blood Count 2.96 M/mcL (3.82-4.97); Red Cell Distribution Width 14.6 % (11.5-14.5)
[2021-11-15 04:57] LABS: Alanine Aminotransferase 3 Units/L (7-52); Albumin 3.2 g/dL (3.5-5.7); Albumin/Globulin Ratio 1.5 (1.1-2.2); Alkaline Phosphatase 88 Units/L (34-104); Aspartate Amino Transferase 16 Units/L (13-39); BUN/Creatinine Ratio 25 (6-26); Bilirubin,Total 0.4 mg/dL (0.3-1.0); Blood Urea Nitrogen 22 mg/dL (8-23); Calcium 9.7 mg/dL (8.6-10.3); Carbon Dioxide 30 mEq/L (23-29); Chloride 108 mEq/L (98-107); Globulin 2.2 g/dL (2.4-3.5); Glucose 91 mg/dL (70-105); Magnesium 2.1 mg/dL (1.6-2.6); Osmolality,Calculated 299 (280-300); Potassium 5.2 mEq/L (3.5-5.1); Sodium 143 mEq/L (136-145); Total Protein 5.4 g/dL (6.4-8.9); eGFR For African Americans > 60 (> 60); eGFR For Non-African Americans > 60 (> 60)
[2021-11-15] MEDS: *HR* OxyCODONE Immed Rel 5 MG TABLET PO PRN ×2 (08:59→20:12)
[2021-11-15] MEDS: Nystatin POWDER 30 GM BOTTLE TP SCH ×3 (09:00→21:16)
[2021-11-15] MEDS: amLODIPine 5 MG TABLET PO SCH (09:00)
[2021-11-15] MEDS: Gabapentin 400 MG CAPSULE PO SCH ×2 (09:00→20:11)
[2021-11-15] MEDS: Multivit/Ca/Min/Fe/FA 1 TAB TABLET PO SCH (09:00)
[2021-11-15] MEDS: cephALEXin 250 MG CAPSULE PO SCH ×3 (09:00→20:11)
[2021-11-15] MEDS: Aspirin Enteric Coated 81 MG Tablet PO SCH (09:00)
[2021-11-15] MEDS: Ascorbic Acid 500 MG TABLET PO SCH ×2 (09:01→17:06)
[2021-11-15] MEDS: Carbidopa/Levodopa 25/100 TABLET PO SCH ×3 (09:03→20:13)
[2021-11-15] MEDS: Mirtazapine 15 MG TABLET PO SCH (20:10)
[2021-11-15] MEDS: *HR* Rivaroxaban 10 MG TABLET PO SCH (20:11)
[2021-11-16 05:01] LABS: Hematocrit 29.5 % (35.3-44.9); Mean Corpuscular HGB Conc 30.5 g/dL (31.6-35.5); Mean Corpuscular Hemoglobin 28.5 pg (28.0-33.3); Mean Corpuscular Volume 93.4 fL (83.0-100.0); Mean Platelet Volume 9.8 fL (9.4-12.4); Platelet Count 275 K/mcL (140-400); Red Blood Count 3.16 M/mcL (3.82-4.97); Red Cell Distribution Width 14.5 % (11.5-14.5); White Blood Count 7.6 K/mcL (4.3-11.1)
[2021-11-16 05:15] LABS: BUN/Creatinine Ratio 24 (6-26); Blood Urea Nitrogen 18 mg/dL (8-23); Calcium 9.6 mg/dL (8.6-10.3); Carbon Dioxide 31 mEq/L (23-29); Chloride 108 mEq/L (98-107); Glucose 90 mg/dL (70-105); Osmolality,Calculated 297 (280-300); Potassium 4.4 mEq/L (3.5-5.1); Sodium 143 mEq/L (136-145); eGFR For African Americans > 60 (> 60); eGFR For Non-African Americans > 60 (> 60)
[2021-11-16] MEDS: Gabapentin 400 MG CAPSULE PO SCH ×2 (08:24→20:00)
[2021-11-16] MEDS: Aspirin Enteric Coated 81 MG Tablet PO SCH (08:24)
[2021-11-16] MEDS: *HR* OxyCODONE Immed Rel 5 MG TABLET PO PRN ×2 (08:25→20:01)
[2021-11-16] MEDS: Multivit/Ca/Min/Fe/FA 1 TAB TABLET PO SCH (08:25)
[2021-11-16] MEDS: Ascorbic Acid 500 MG TABLET PO SCH ×2 (08:26→16:25)
[2021-11-16] MEDS: amLODIPine 5 MG TABLET PO SCH (08:26)
[2021-11-16] MEDS: Carbidopa/Levodopa 25/100 TABLET PO SCH ×3 (08:30→20:02)
[2021-11-16] MEDS: Nystatin POWDER 30 GM BOTTLE TP SCH ×3 (08:33→22:00)
[2021-11-16] MEDS: *HR* Rivaroxaban 10 MG TABLET PO SCH (20:00)
[2021-11-16] MEDS: Mirtazapine 15 MG TABLET PO SCH (20:02)
[2021-11-17 07:15] VITALS: BP 104/57; PULSE 65; RESP 17; TEMP 98.6; O2SAT 94
[2021-11-17] MEDS: Aspirin Enteric Coated 81 MG Tablet PO SCH (08:22)
[2021-11-17] MEDS: amLODIPine 5 MG TABLET PO SCH (08:23)
[2021-11-17] MEDS: Gabapentin 400 MG CAPSULE PO SCH (08:23)
[2021-11-17] MEDS: Ascorbic Acid 500 MG TABLET PO SCH ×2 (08:23→15:03)
[2021-11-17] MEDS: Multivit/Ca/Min/Fe/FA 1 TAB TABLET PO SCH (08:23)
[2021-11-17] MEDS: Nystatin POWDER 30 GM BOTTLE TP SCH ×2 (08:23→15:03)
[2021-11-17] MEDS: Carbidopa/Levodopa 25/100 TABLET PO SCH ×2 (08:28→11:38)
== END 2021-11-17 17:30 | DRG 560 ==
LOC: INPGRE 20:32
PROVIDERS: ADMIT Family Medicine; ATTEND Family Medicine